=== PATIENT | male | born 1960 | race American Indian/Alaskan Native ===

== ENCOUNTER 2016-08-20 22:10 | Emergency (ER) | payer SELFPAY ==
[2016-08-20 22:15] VITALS: RESP 16
--- NOTE | 2016-08-20 22:32 | ED PDOC ---
HPI: Psych/Substance Abuse Time Seen by Provider: 08/20/16 22:15 Chief Complaint (Nursing): Psychiatric Evaluation Chief Complaint (Provider): "I'm alone" History Per: Patient History/Exam Limitations: no limitations Current Symptoms Are (Timing): Still Present Additional Complaint(s): Pt states "he is alone" when asked why he is in the ER. PT admits to drinking. According to EMS to was laying on the street sleeping and a bystander called police/EMS. EMS states he reports SI in ambulance. Past Medical History Reviewed: Historical Data, Nursing Documentation, Vital Signs Vital Signs: Last Vital Signs Temp 98.2 F 08/20/16 22:14 Pulse 90 08/20/16 22:14 Resp 16 08/20/16 22:14 BP 123/74 08/20/16 22:14 Pulse Ox 98 08/20/16 22:14 - Medical History PMH: Asthma, CVA, HIV, Schizophrenia, Seizures Denies: Diabetes, Hepatitis, HTN, Chronic Kidney Disease, Sexually Transmitted Disease - Surgical History Surgical History: No Surg Hx - Family History Family History: States: Unknown Family Hx - Living Arrangements Living Arrangements: Other - Social History Current smoker - smoking cessation education provided: No - Immunization History Hx Tetanus Toxoid Vaccination: No Hx Influenza Vaccination: No Hx Pneumococcal Vaccination: No - Home Medications Home Medications: Ambulatory Orders Medication Instructions Recorded Unobtainable [Unobtainable] 09/23/14 Gabapentin [Neurontin] 300 mg PO TID #90 cap 05/03/15 Lisinopril [Zestril] 2.5 mg PO DAILY #30 tab 05/03/15 QUEtiapine [SEROquel] 50 mg PO HS #30 tab 05/03/15 No Known Home Med 04/11/16 - Allergies Allergies/Adverse Reactions: Allergies Allergy/AdvReac Type Severity Reaction Status Date / Time gentamicin [Gentamicin] Allergy RASH Verified 04/30/15 16:37 Macrolide Antibiotics Allergy RASH Verified 03/30/16 19:12 vancomycin Allergy RASH Verified 04/30/15 16:37 Chocolate AdvReac DIARRHEA Uncoded 04/28/15 17:08 Review of Systems ROS Statement: Except As Marked, All Systems Reviewed And Found Negative Cardiovascular: Negative for: Chest Pain Respiratory: Negative for: Shortness of Breath Psych: Positive for: Other Physical Exam - Reviewed Nursing Documentation Reviewed: Yes Vital Signs Reviewed: Yes - Physical Exam Appears: Positive for: Well, Non-toxic, No Acute Distress Head Exam: Positive for: ATRAUMATIC, NORMAL INSPECTION, NORMOCEPHALIC Skin: Positive for: Normal Color, Warm, DRY Eye Exam: Positive for: Normal appearance, EOMI, PERRL ENT: Positive for: Normal ENT Inspection Neck: Positive for: Normal, Painless ROM Cardiovascular/Chest: Positive for: Regular Rate, Rhythm Respiratory: Positive for: CNT, Normal Breath Sounds Gastrointestinal/Abdominal: Positive for: Normal Exam, Bowel Sounds, Soft. Negative for: Tenderness Back: Positive for: Normal Inspection Neurologic/Psych: Positive for: Alert (To tactile stimuli ). Negative for: Oriented - Laboratory Results Result Diagrams: 08/20/16 23:05 08/20/16 23:05 - ECG O2 Sat by Pulse Oximetry: 98 Medical Decision Making Medical Decision Making: Endorsed at 0000 pending sobriety and re-evaluation. Disposition - Clinical Impression Clinical Impression: Alcohol abuse - Patient ED Disposition Is Patient to be Admitted: Transfer of Care - Disposition Disposition: Transfer of Care Disposition Time: 23:38 Condition: STABLE
[2016-08-20 23:08] LABS: HEMATOCRIT 41.2 % (35.0-51.0); MEAN CELL VOLUME 92.9 fl (80.0-94.0); MEAN CORPUSCULAR HEMOGLOBIN 30.5 pg (27.0-31.0); MEAN CORPUSCULAR HGB CONC 32.9 g/dL (33.0-37.0); RED CELL DISTRIBUTION WIDTH 16.2 % (11.5-14.5); WHITE BLOOD COUNT 5.5 K/uL (4.8-10.8)
[2016-08-20 23:17] LABS: ALB/GLOB RATIO 0.6 (1.0-2.1); ALCOHOL SERUM 284 mg/dl (0-10); ALKALINE PHOSPHATASE 349 U/L (38-126); ALT/SGPT 59 U/L (21-72); AST/SGOT 137 U/L (17-59); BILIRUBIN,TOTAL 0.6 mg/dl (0.2-1.3); BLOOD UREA NITROGEN 10 mg/dl (9-20); CALCIUM 8.8 mg/dL (8.4-10.2); CARBON DIOXIDE 25 mmol/L (22-30); CHLORIDE 109 mmol/L (98-107); GFR AFRICAN-AMERICAN > 60; GLUCOSE,RANDOM 97 mg/dL (75-110); POTASSIUM 3.7 MMOL/L (3.6-5.0); SODIUM 145 mmol/l (132-148)
--- NOTE | 2016-08-21 02:09 | ED PDOC ---
- Laboratory Results Result Diagrams: 08/20/16 23:05 08/20/16 23:05 - ECG O2 Sat by Pulse Oximetry: 98 - Progress ED Course And Treament: Signed out to me pending sobriety. 0000 Pt. in no distress. Sleeping comfortably. 0208 Sleeping comfortably but is easily arousable to tactile stimuli. 0340 Pt. evaluated by crisis and cleared pt. for discharge. 0600 Steady gait. No slurred speech. Disposition - Clinical Impression Clinical Impression: Alcohol abuse - POA Present On Arrival: None - Disposition Referrals: [facility] [Outside] Disposition: Routine/Home Disposition Time: 06:00 Condition: STABLE Instructions: Alcohol Intoxication (ED)
[2016-08-21 07:01] VITALS: BP 132/63; PULSE 79; TEMP 98; O2SAT 99
== END 2016-08-21 06:30 | disposition home or self-care (01) ==
LOC: H.ER 22:10
DX: F10.10 Alcohol abuse, uncomplicated (principal); F20.9 Schizophrenia, unspecified; Z86.73 Personal history of transient ischemic attack (TIA), and cerebral infarction without residual deficits; J45.909 Unspecified asthma, uncomplicated; B20 Human immunodeficiency virus [HIV] disease
CPT/HCPCS: 80053; 85027; 99283; G0480

== ENCOUNTER 2016-12-04 08:00 | Observation (INO) | payer MEDICAID ==
--- NOTE | 2016-12-04 08:21 | ED PDOC ---
HPI: Psych/Substance Abuse Time Seen by Provider: 12/04/16 08:04 Chief Complaint (Nursing): Alcohol Ingestion Chief Complaint (Provider): Alcohol Ingestion History Per: EMS History/Exam Limitations: intoxication Onset/Duration Of Symptoms: Hrs (prior to arrival ) Additional Complaint(s): Chris Delgado is a 56 year old male with a past medical history of HIV, Asthma, CVA, Schizophrenia, and seizures brought to the ED by EMS after being found on the street with a bottle of scotch next to him. The patient admits to EtOH consumption. He denies any injury. PMD: Non CPH Provider Past Medical History Reviewed: Historical Data, Nursing Documentation, Vital Signs - Medical History PMH: Asthma, CVA, HIV, Schizophrenia, Seizures Denies: Diabetes, Hepatitis, HTN, Chronic Kidney Disease, Sexually Transmitted Disease - Family History Family History: States: Unknown Family Hx - Immunization History Hx Tetanus Toxoid Vaccination: No Hx Influenza Vaccination: No Hx Pneumococcal Vaccination: No - Home Medications Home Medications: Ambulatory Orders Medication Instructions Recorded Folic Acid 1 mg PO DAILY #0 tab 06/02/14 Ipratropium/Albuterol Sulfate 2 felipe IH Q4 PRN #0 felipe 06/02/14 [Combivent] Thiamine [B-1] 100 mg PO DAILY #0 tab 06/02/14 chlordiazePOXIDE [Librium] 25 mg PO Q6 #0 cap 06/02/14 Unobtainable [Unobtainable] 09/23/14 Gabapentin [Neurontin] 300 mg PO TID #90 cap 05/03/15 Lisinopril [Zestril] 2.5 mg PO DAILY #30 tab 05/03/15 QUEtiapine [SEROquel] 50 mg PO HS #30 tab 05/03/15 No Known Home Med 04/11/16 Naproxen [Naprosyn] 500 mg PO Q12H PRN #20 tablet 07/30/16 Amoxicillin/Clavulanate [Augmentin 1 tab PO BID #20 tab 09/04/16 875 MG-125 MG] - Allergies Allergies/Adverse Reactions: Allergies Allergy/AdvReac Type Severity Reaction Status Date / Time gentamicin [Gentamicin] Allergy RASH Verified 04/30/15 16:37 Macrolide Antibiotics Allergy RASH Verified 03/30/16 19:12 vancomycin Allergy RASH Verified 04/30/15 16:37 All Mycins Allergy RASH Uncoded 05/08/15 07:25 Chocolate AdvReac DIARRHEA Uncoded 04/28/15 17:08 Review of Systems Review Of Systems: ROS cannot be obtained secondary to pt's inabilty to answer questions. (etoh intoxication) Physical Exam - Reviewed Nursing Documentation Reviewed: Yes Vital Signs Reviewed: Yes - Physical Exam Appears: Positive for: Well, Non-toxic, No Acute Distress Head Exam: Positive for: ATRAUMATIC, NORMAL INSPECTION, NORMOCEPHALIC Skin: Positive for: Normal Color, Warm, Dry Eye Exam: Positive for: EOMI, Normal appearance, PERRL ENT: Positive for: Normal ENT Inspection Neck: Positive for: Normal, Painless ROM, Supple Cardiovascular/Chest: Positive for: Regular Rate, Rhythm, Chest Non Tender Respiratory: Positive for: Normal Breath Sounds. Negative for: Respiratory Distress Gastrointestinal/Abdominal: Positive for: Normal Exam, Bowel Sounds, Soft. Negative for: Tenderness Back: Positive for: Normal Inspection Extremity: Positive for: Normal ROM. Negative for: Pedal Edema, Deformity Neurologic/Psych: Positive for: Alert, Oriented, Mood/Affect (sleepy/arousable ) . Negative for: Motor/Sensory Deficits - Progress Re-evaluation Time: 12:47 Condition: Improved (Awake responsive no focal neuro deficits) Medical Decision Making Medical Decision Making: Time: 08:04 Impression: Alcohol Ingestion Plan: * Alcohol Serum Stat * Admit to Hospital Routine * Reevaluation Scribe Attestation: Documented by Georgette Manriquez, acting as a scribe for Duarte Mixon MD. Provider Scribe Attestation: All medical record entries made by the Scribe were at my direction and personally dictated by me. I have reviewed the chart and agree that the record accurately reflects my personal performance of the history, physical exam, medical decision making, and the department course for this patient. I have also personally directed, reviewed, and agree with the discharge instructions and disposition. ED OBSERVATION Discharge: Yes Date of observation admission: 12/04/16 Time of observation admission: 08:17 - Observation admission statement Patient is being placed in observation because:: Time intensive ED evaluation. - Goals of Observation Goals of observation are:: Results of ED workup and eventual disposition. - Progress Note Progress Note: 12/04/16 09:43 Pending clinical sobriety. Vitals stable. 12/04/16 11:26 pt stable. Pending clinical sobriety. Vitals stable. Disposition - Clinical Impression Clinical Impression: Alcohol abuse - Patient ED Disposition Is Patient to be Admitted: No - Disposition Disposition: Routine/Home Disposition Time: 12:47 Condition: FAIR
[2016-12-04 08:51] VITALS: BP 117/61; PULSE 56; RESP 16; O2SAT 100
== END 2016-12-04 15:24 | disposition home or self-care (01) ==
LOC: H.ER 08:00 → H.EROBSV 08:17
PROVIDERS: ADMIT Emergency Medicine; ATTEND Emergency Medicine
DX: F10.10 Alcohol abuse, uncomplicated (principal); Z21 Asymptomatic human immunodeficiency virus [HIV] infection status; F20.9 Schizophrenia, unspecified; J45.909 Unspecified asthma, uncomplicated; Z86.73 Personal history of transient ischemic attack (TIA), and cerebral infarction without residual deficits; R56.9 Unspecified convulsions; Z79.899 Other long term (current) drug therapy; F17.200 Nicotine dependence, unspecified, uncomplicated; Y90.8 Blood alcohol level of 240 mg/100 ml or more
CPT/HCPCS: 80320; 82948; 99282; G0378

== ENCOUNTER 2016-12-09 05:21 | Emergency (ER) | payer SELFPAY ==
[2016-12-09 05:30] VITALS: PULSE 87
--- NOTE | 2016-12-09 05:41 | ED PDOC ---
HPI: Psych/Substance Abuse Time Seen by Provider: 12/09/16 05:25 Chief Complaint (Nursing): Alcohol Ingestion Chief Complaint (Provider): Alcohol Ingestion ED Caveat: Intoxicated History Per: Patient History/Exam Limitations: intoxication Onset/Duration Of Symptoms: Days (x 1) Current Symptoms Are (Timing): Still Present Additional Complaint(s): Chris is a 51 y/o male who was brought to the ED by EMS for alcohol intoxication. Patient was found publicly intoxicated in the streets, laying down. Unable to provide history or ROS due to level of intoxication. No signs of trauma. PMD: None Past Medical History Reviewed: Unable To Obtain Vital Signs: Last Vital Signs Temp 98.0 F 12/09/16 05:28 Pulse 87 12/09/16 05:28 Resp 17 12/09/16 05:28 BP 130/82 12/09/16 05:28 Pulse Ox 98 12/09/16 05:28 - Family History Family History: States: No Known Family Hx - Home Medications Home Medications: Ambulatory Orders Medication Instructions Recorded Folic Acid 1 mg PO DAILY #0 tab 06/02/14 Ipratropium/Albuterol Sulfate 2 felipe IH Q4 PRN #0 felipe 06/02/14 [Combivent] Thiamine [B-1] 100 mg PO DAILY #0 tab 06/02/14 chlordiazePOXIDE [Librium] 25 mg PO Q6 #0 cap 06/02/14 Unobtainable [Unobtainable] 09/23/14 Gabapentin [Neurontin] 300 mg PO TID #90 cap 05/03/15 Lisinopril [Zestril] 2.5 mg PO DAILY #30 tab 05/03/15 QUEtiapine [SEROquel] 50 mg PO HS #30 tab 05/03/15 No Known Home Med 04/11/16 Naproxen [Naprosyn] 500 mg PO Q12H PRN #20 tablet 07/30/16 Amoxicillin/Clavulanate [Augmentin 1 tab PO BID #20 tab 09/04/16 875 MG-125 MG] - Allergies Allergies/Adverse Reactions: Allergies Allergy/AdvReac Type Severity Reaction Status Date / Time gentamicin [Gentamicin] Allergy RASH Verified 04/30/15 16:37 Macrolide Antibiotics Allergy RASH Verified 03/30/16 19:12 vancomycin Allergy RASH Verified 04/30/15 16:37 All Mycins Allergy RASH Uncoded 05/08/15 07:25 Chocolate AdvReac DIARRHEA Uncoded 04/28/15 17:08 Review of Systems Review Of Systems: ROS cannot be obtained secondary to pt's inabilty to answer questions. Physical Exam - Reviewed Nursing Documentation Reviewed: Yes Vital Signs Reviewed: Yes - Physical Exam Appears: Positive for: Non-toxic, No Acute Distress Head Exam: Positive for: ATRAUMATIC, NORMAL INSPECTION, NORMOCEPHALIC Skin: Positive for: Normal Color, Warm, Dry Eye Exam: Positive for: EOMI, Normal appearance, PERRL Neck: Positive for: Normal, Painless ROM, Supple Cardiovascular/Chest: Positive for: Regular Rate, Rhythm. Negative for: Murmur Respiratory: Positive for: Normal Breath Sounds. Negative for: Accessory Muscle Use, Respiratory Distress Gastrointestinal/Abdominal: Positive for: Normal Exam, Soft. Negative for: Tenderness Back: Positive for: Normal Inspection Extremity: Positive for: Normal ROM. Negative for: Pedal Edema, Deformity Neurologic/Psych: Positive for: Alert, Oriented (x1, to person), Other (Slurred speech) - Laboratory Results Result Diagrams: 12/09/16 06:00 12/09/16 06:00 - ECG O2 Sat by Pulse Oximetry: 98 (RA) Pulse Ox Interpretation: Normal Medical Decision Making Medical Decision Making: Time: 05:32 Initial Impression: 51 y/o intoxicated male Initial Plan: --Labs --Patient will be admitted to ED-OBS for alcohol intoxication *See ED-OBS for further documentation Scribe Attestation: Documented by Breanne Umanzor, acting as a scribe for Dusty Kuo MD Provider Scribe Attestation: All medical record entries made by the Scribe were at my direction and personally dictated by me. I have reviewed the chart and agree that the record accurately reflects my personal performance of the history, physical exam, medical decision making, and the department course for this patient. I have also personally directed, reviewed, and agree with the discharge instructions and disposition. ED OBSERVATION Date of observation admission: 12/09/16 Time of observation admission: 05:32 - Observation admission statement Patient is being placed in observation because:: Alcohol intoxication - Goals of Observation Goals of observation are:: Clinical sobriety - Progress Note Progress Note: 12/09/16 Time: 05:32 --Patient resting. Vital signs stable. Time: 07:00 --Patient continues to rest. Vital signs stable. --Patient is signed out by me to Dr. Manpreet Manzano MD, pending sobriety. Disposition - Clinical Impression Clinical Impression: Alcohol abuse with intoxication - Patient ED Disposition Is Patient to be Admitted: Transfer of Care - Disposition Referrals: [facility] [Outside] Disposition: Transfer of Care Disposition Time: 05:30 Condition: GOOD Instructions: Alcohol Intoxication (ED)
[2016-12-09 06:14] LABS: BASO # 0.1 K/uL (0.0-0.2); BASO % 1.1 % (0.0-2.0); EOS # 0.1 K/uL (0.0-0.7); EOS % 0.7 % (0.0-4.0); HEMATOCRIT 43.9 % (35.0-51.0); LYMPH # 2.4 K/uL (1.0-4.3); LYMPH % 32.6 % (20.0-40.0); MEAN CELL VOLUME 94.8 fl (80.0-94.0); MEAN CORPUSCULAR HGB CONC 32.7 g/dL (33.0-37.0); MEAN PLATELET VOLUME 8.9 fl (7.2-11.7); MONO # 0.9 K/uL (0.0-0.8); MONO % 11.7 % (0.0-10.0); NEUT # 3.9 K/uL (1.8-7.0); NEUT % 53.9 % (50.0-75.0); NRBC % 0.5 % (0.0-0.0); WHITE BLOOD COUNT 7.3 K/uL (4.8-10.8)
[2016-12-09 06:46] LABS: ALB/GLOB RATIO 0.5 (1.0-2.1); ALCOHOL SERUM 225 mg/dl (0-10); ALKALINE PHOSPHATASE 697 U/L (38-126); ALT/SGPT 62 U/L (21-72); AST/SGOT 168 U/L (17-59); BLOOD UREA NITROGEN 14 mg/dl (9-20); CALCIUM 8.3 mg/dL (8.4-10.2); CARBON DIOXIDE 22 mmol/L (22-30); CHLORIDE 106 mmol/L (98-107); GFR AFRICAN-AMERICAN > 60; GLUCOSE,RANDOM 89 mg/dL (75-110); POTASSIUM 3.7 MMOL/L (3.6-5.0); SODIUM 140 mmol/l (132-148); TOTAL PROTEIN 8.8 G/DL (6.3-8.2)
--- NOTE | 2016-12-09 07:30 | ED PDOC ---
- Laboratory Results Result Diagrams: 12/09/16 06:00 12/09/16 06:00 - ECG O2 Sat by Pulse Oximetry: 98 (RA) Pulse Ox Interpretation: Normal Medical Decision Making Medical Decision Making: Time: 05:32 Admit to hospital Routine: ED Obs for alcohol intoxication Time: 07:00 --Patient endorsed from Dr. Kuo to me. Any further documentation will be included within ED Obs section of the chart Scribe Attestation: Documented by Jessica Love, acting as a scribe for Manpreet Manzano MD. Provider Scribe Attestation: All medical record entries made by the Scribe were at my direction and personally dictated by me. I have reviewed the chart and agree that the record accurately reflects my personal performance of the history, physical exam, medical decision making, and the department course for this patient. I have also personally directed, reviewed, and agree with the discharge instructions and disposition. Disposition Doctor Will See Patient In The: Office Counseled Patient/Family Regarding: Studies Performed, Diagnosis - Clinical Impression Clinical Impression: Alcohol abuse with intoxication - POA Present On Arrival: None - Disposition Referrals: [facility] [Outside] Disposition: Routine/Home Disposition Time: 14:03 Condition: GOOD Instructions: Alcohol Intoxication (ED) ED OBSERVATION Discharge: Yes Date of observation admission: 12/09/16 Time of observation admission: 05:32 - Observation admission statement Patient is being placed in observation because:: ETOH intoxication - Goals of Observation Goals of observation are:: clinical sobriety - Progress Note Progress Note: 12/09/16 07:02 --Patient resting comfortably. 12/09/16 08:32 --Patient resting comfortably. 12/09/16 10:02 --Patient resting comfortably and pending clinical sobriety. 12/09/16 11:32 --Patient resting comfortably and pending clinical sobriety. 12/09/16 13:02 --Patient resting comfortably and pending clinical sobriety. 12/09/16 14:03 Upon provider reevaluation patient is clinically sober, is medically stable, and requires no further treatment in the ED at this time. Patient will be discharged home. Counseling was provided and all questions were answered regarding diagnosis and need for follow up with referred clinic. There is agreement to discharge plan. Return if symptoms persist or worsen. Clinical Impression: Alcohol abuse with intoxication 12/09/16 14:15 Pt is alert and awake. Ambulating with steady gait.
[2016-12-09 13:44] VITALS: BP 139/94; RESP 16; TEMP 98.6
[2016-12-09 14:04] VITALS: O2SAT 98
[2016-12-09 15:18] LABS: RBC URINE 7 /hpf (0-3); URINE BACTERIA RARE (<OCC); URINE BILIRUBIN NEGATIVE (NEGATIVE); URINE BLOOD NEGATIVE (NEGATIVE); URINE COLOR AMBER (YELLOW); URINE GLUCOSE (UA) NEG (Normal); URINE KETONE TRACE mg/dL (NEGATIVE); URINE LEUKOCYTE ESTERASE NEG Leu/uL (Negative); URINE PROTEIN 30 mg/dL (NEGATIVE); WBC URINE 3 /hpf (0-5)
== END 2016-12-09 14:34 | disposition home or self-care (01) ==
LOC: EDBD → H.ER 05:21 → MERGE 05:21 → H.ER 14:34
DX: F10.129 Alcohol abuse with intoxication, unspecified (principal); Y90.7 Blood alcohol level of 200-239 mg/100 ml
CPT/HCPCS: 80053; 81003; 82948; 85025; 99283; G0480

== ENCOUNTER 2016-12-09 16:50 | Observation (INO) | payer MEDICAID ==
--- NOTE | 2016-12-09 17:08 | ED PDOC ---
HPI: Psych/Substance Abuse Chief Complaint (Nursing): Alcohol Ingestion History Per: EMS Onset/Duration Of Symptoms: Unknown Current Symptoms Are (Timing): Still Present Suicide/Self Injury Attempted (Context): None Modifying Factor(s): Alcohol Severity: Moderate Additional Complaint(s): Brought by EMS admits to ETOH ingestion earlier today. Denies injury. Denies SI/ HI Past Medical History Vital Signs: Last Vital Signs Temp 97.8 F 12/09/16 16:55 Pulse 86 12/09/16 16:55 Resp 14 12/09/16 16:55 BP 138/90 12/09/16 16:55 Pulse Ox 92 L 12/09/16 16:55 - Medical History PMH: No Chronic Diseases - Family History Family History: States: Unknown Family Hx - Allergies Allergies/Adverse Reactions: Allergies Allergy/AdvReac Type Severity Reaction Status Date / Time No Known Allergies Allergy Verified 12/09/16 05:30 Review of Systems Review Of Systems: ROS cannot be obtained secondary to pt's inabilty to answer questions. Physical Exam - Reviewed Nursing Documentation Reviewed: Yes Vital Signs Reviewed: Yes - Physical Exam Appears: Positive for: Non-toxic, No Acute Distress Head Exam: Positive for: ATRAUMATIC, NORMAL INSPECTION, NORMOCEPHALIC Skin: Positive for: Normal Color, Warm, DRY Eye Exam: Positive for: EOMI, Normal appearance, PERRL ENT: Positive for: Normal ENT Inspection Neck: Positive for: Normal, Painless ROM Cardiovascular/Chest: Positive for: Regular Rate, Rhythm Respiratory: Positive for: CNT, Normal Breath Sounds Gastrointestinal/Abdominal: Positive for: Normal Exam, Bowel Sounds, Soft Back: Positive for: Normal Inspection Extremity: Positive for: Normal ROM Neurologic/Psych: Negative for: Alert (Sleepy arousable), Motor/Sensory Deficits - ECG O2 Sat by Pulse Oximetry: 92 ED OBSERVATION Date of observation admission: 12/09/16 Time of observation admission: 17:09 - Observation admission statement Patient is being placed in observation because:: ETOH ingestion Disposition - Clinical Impression Clinical Impression: Alcohol ingestion - Patient ED Disposition Is Patient to be Admitted: No - Disposition Disposition: Routine/Home Disposition Time: 18:08 Condition: FAIR
[2016-12-09 18:22] VITALS: BP 136/75; PULSE 85; RESP 16; TEMP 98; O2SAT 98
== END 2016-12-09 18:50 | disposition home or self-care (01) ==
LOC: H.ER 16:50 → MERGE 17:09 → H.EROBSV 17:09
PROVIDERS: ADMIT Emergency Medicine; ATTEND Emergency Medicine
DX: F10.10 Alcohol abuse, uncomplicated (principal); Y90.6 Blood alcohol level of 120-199 mg/100 ml
CPT/HCPCS: 36415; 80320; 99282; G0378

== ENCOUNTER 2017-02-05 03:33 | Emergency (ER) | payer MEDICAID ==
[2017-02-05 03:40] VITALS: BMI 22.1
--- NOTE | 2017-02-05 03:58 | ED PDOC ---
HPI: Psych/Substance Abuse Time Seen by Provider: 02/05/17 03:38 Chief Complaint (Nursing): Alcohol Ingestion Chief Complaint (Provider): Alcohol Intoxication ED Caveat: Intoxicated History Per: Patient History/Exam Limitations: no limitations Current Symptoms Are (Timing): Still Present Suicide/Self Injury Attempted (Context): None Modifying Factor(s): Alcohol Additional Complaint(s): 56 year old male brought in by EMS presents to ED due to public alcohol intoxication and is well known to provider and ED. Patient is unable to provide any information, PCP: GREGOR[facility] Past Medical History Reviewed: Historical Data, Nursing Documentation, Vital Signs - Medical History PMH: Asthma, CVA, HIV, Schizophrenia, Seizures Denies: Diabetes, Hepatitis, HTN, Chronic Kidney Disease, Sexually Transmitted Disease - Family History Family History: States: Unknown Family Hx - Social History Alcohol: > 2 Drinks/Day - Immunization History Hx Tetanus Toxoid Vaccination: No Hx Influenza Vaccination: No Hx Pneumococcal Vaccination: No - Home Medications Home Medications: Ambulatory Orders Medication Instructions Recorded Folic Acid 1 mg PO DAILY #0 tab 06/02/14 Ipratropium/Albuterol Sulfate 2 felipe IH Q4 PRN #0 felipe 06/02/14 [Combivent] Thiamine [B-1] 100 mg PO DAILY #0 tab 06/02/14 chlordiazePOXIDE [Librium] 25 mg PO Q6 #0 cap 06/02/14 Unobtainable [Unobtainable] 09/23/14 Gabapentin [Neurontin] 300 mg PO TID #90 cap 05/03/15 Lisinopril [Zestril] 2.5 mg PO DAILY #30 tab 05/03/15 QUEtiapine [SEROquel] 50 mg PO HS #30 tab 05/03/15 No Known Home Med 04/11/16 Naproxen [Naprosyn] 500 mg PO Q12H PRN #20 tablet 07/30/16 Amoxicillin/Clavulanate [Augmentin 1 tab PO BID #20 tab 09/04/16 875 MG-125 MG] - Allergies Allergies/Adverse Reactions: Allergies Allergy/AdvReac Type Severity Reaction Status Date / Time gentamicin [Gentamicin] Allergy RASH Verified 04/30/15 16:37 Macrolide Antibiotics Allergy RASH Verified 03/30/16 19:12 vancomycin Allergy RASH Verified 04/30/15 16:37 All Mycins Allergy RASH Uncoded 05/08/15 07:25 Chocolate AdvReac DIARRHEA Uncoded 04/28/15 17:08 Review of Systems Review Of Systems: ROS cannot be obtained secondary to pt's inabilty to answer questions. Physical Exam - Reviewed Nursing Documentation Reviewed: Yes Vital Signs Reviewed: Yes - Physical Exam Appears: Positive for: Non-toxic, No Acute Distress Skin: Positive for: Normal Color ENT: Positive for: Normal ENT Inspection Cardiovascular/Chest: Positive for: Regular Rate, Rhythm. Negative for: Murmur Respiratory: Positive for: Normal Breath Sounds. Negative for: Respiratory Distress Gastrointestinal/Abdominal: Positive for: Soft. Negative for: Tenderness Back: Positive for: Normal Inspection Extremity: Positive for: Normal ROM. Negative for: Deformity Neurologic/Psych: Positive for: Gait (unsteady gait), Other ((+) slurred speech) . Negative for: Alert, Oriented Medical Decision Making Medical Decision Makin Initial impression: alcohol intoxication Initial plan: * EtOH serum * UDrug screen * Accucheck Scribe Attestation: Documented by Eliza Burns acting as a scribe for Dusty Kuo MD. Scribe Attestation: All medical record entries made by the Scribe were at my direction and personally dictated by me. I have reviewed the chart and agree that the record accurately reflects my personal performance of the history, physical exam, medical decision making, and the department course for this patient. I have also personally directed, reviewed, and agree with the discharge instructions and disposition. Disposition - Disposition Forms: [employer] (Sinhala)
[2017-02-05 04:23] VITALS: BP 133/99; PULSE 65; RESP 14; TEMP 98.4; O2SAT 99
== END 2017-02-05 07:00 | disposition home or self-care (01) ==
LOC: H.ER 03:33
DX: F10.10 Alcohol abuse, uncomplicated (principal)

== ENCOUNTER 2017-04-26 08:50 | Emergency (ER) | payer MEDICAID ==
[2017-04-26 08:51] VITALS: BMI 22.1
[2017-04-26 09:13] VITALS: TEMP 97.7; O2SAT 98
[2017-04-26] MEDS ORDERED: Albuterol-Ipratrop 3 mg / 0.5 (3 ml) UD INH STA (09:54)
[2017-04-26] MEDS ORDERED: Albuterol-Ipratrop 3 mg / 0.5 (3 ml) UD ONE (09:59)
--- NOTE | 2017-04-26 10:05 | ED PDOC ---
HPI: Psych/Substance Abuse Time Seen by Provider: 04/26/17 09:23 Chief Complaint (Nursing): Alcohol Ingestion Chief Complaint (Provider): Alcohol Ingestion History Per: Patient, EMS History/Exam Limitations: no limitations Onset/Duration Of Symptoms: Days (x 1) Current Symptoms Are (Timing): Still Present Involuntary Hold By: Local Law Enforcement Additional Complaint(s): 57 year old male presents to the ED for evaluation after begin brought in by EMS and placed under arrest by local police. He was found sleeping in the hallway of an apartment building. Admits to drinking alcohol. He complains of coughing. Denies fever. PMD: none provided Past Medical History Reviewed: Historical Data Vital Signs: Last Vital Signs Temp 97.7 F 04/26/17 08:56 Pulse 63 04/26/17 09:33 Resp 16 04/26/17 09:33 BP 137/92 H 04/26/17 09:33 Pulse Ox 98 04/26/17 09:33 - Medical History PMH: Asthma, CVA, HIV, Schizophrenia, Seizures Denies: Diabetes, Hepatitis, HTN, Chronic Kidney Disease, Sexually Transmitted Disease - Surgical History Surgical History: No Surg Hx - Family History Family History: States: Unknown Family Hx - Immunization History Hx Tetanus Toxoid Vaccination: No Hx Influenza Vaccination: No Hx Pneumococcal Vaccination: No - Home Medications Home Medications: Ambulatory Orders Medication Instructions Recorded Folic Acid 1 mg PO DAILY #0 tab 06/02/14 Ipratropium/Albuterol Sulfate 2 felipe IH Q4 PRN #0 felipe 06/02/14 [Combivent] Thiamine [B-1] 100 mg PO DAILY #0 tab 06/02/14 chlordiazePOXIDE [Librium] 25 mg PO Q6 #0 cap 06/02/14 Gabapentin [Neurontin] 300 mg PO TID #90 cap 05/03/15 Lisinopril [Zestril] 2.5 mg PO DAILY #30 tab 05/03/15 QUEtiapine [SEROquel] 50 mg PO HS #30 tab 05/03/15 Naproxen [Naprosyn] 500 mg PO Q12H PRN #20 tablet 07/30/16 Amoxicillin/Clavulanate [Augmentin 1 tab PO BID #20 tab 09/04/16 875 MG-125 MG] levoFLOXacin [Levaquin] 750 mg PO DAILY #4 tab 04/26/17 - Allergies Allergies/Adverse Reactions: Allergies Allergy/AdvReac Type Severity Reaction Status Date / Time gentamicin [Gentamicin] Allergy RASH Verified 04/26/17 08:56 Macrolide Antibiotics Allergy RASH Verified 04/26/17 08:56 vancomycin Allergy RASH Verified 04/26/17 08:56 All Mycins Allergy RASH Uncoded 05/08/15 07:25 Chocolate AdvReac DIARRHEA Uncoded 04/28/15 17:08 Review of Systems ROS Statement: Except As Marked, All Systems Reviewed And Found Negative Constitutional: Negative for: Fever Respiratory: Positive for: Cough Physical Exam - Reviewed Nursing Documentation Reviewed: Yes Vital Signs Reviewed: Yes - Physical Exam Appears: Positive for: Non-toxic, No Acute Distress Head Exam: Positive for: ATRAUMATIC, NORMOCEPHALIC Skin: Positive for: Normal Color, Warm, Dry Eye Exam: Positive for: EOMI, Normal appearance, PERRL Neck: Positive for: Normal, Painless ROM, Supple Cardiovascular/Chest: Positive for: Regular Rate, Rhythm Respiratory: Positive for: Normal Breath Sounds. Negative for: Respiratory Distress Gastrointestinal/Abdominal: Positive for: Normal Exam, Soft Extremity: Positive for: Normal ROM. Negative for: Deformity Neurologic/Psych: Positive for: Alert, Oriented - Laboratory Results Result Diagrams: 04/26/17 12:20 04/26/17 12:20 - ECG O2 Sat by Pulse Oximetry: 98 (RA) Pulse Ox Interpretation: Normal Medical Decision Making Medical Decision Making: Time: 09:53 Plan: --Alcohol serum --Chest x-ray --Duoneb 3 ml INH --Peak Flow Pre-post Time: 10:44 Chest X-ray FINDINGS: LUNGS: No active pulmonary disease. PLEURA: No significant pleural effusion identified, no pneumothorax apparent. CARDIOVASCULAR: Normal. OSSEOUS STRUCTURES: Probable old fracture right 6th and 7th ribs laterally. Correlate with examination. . VISUALIZED UPPER ABDOMEN: Normal. OTHER FINDINGS: None. IMPRESSION: No acute infiltrate. Probable old fractures right 6th and 7th ribs. Otherwise unremarkable. Scribe Attestation: Documented by Annette Aceves, acting as a scribe for Rekha Sheehan MD Provider Scribe Attestation: All medical record entries made by the Scribe were at my direction and personally dictated by me. I have reviewed the chart and agree that the record accurately reflects my personal performance of the history, physical exam, medical decision making, and the department course for this patient. I have also personally directed, reviewed, and agree with the discharge instructions and disposition. Disposition - Clinical Impression Clinical Impression: Alcohol intoxication, Bronchitis - Disposition Referrals: [facility] [Outside] Disposition: Routine/Home Disposition Time: 13:48 Condition: IMPROVED Prescriptions: levoFLOXacin [Levaquin] 750 mg PO DAILY #4 tab Instructions: Acute Bronchitis (ED), Alcohol Intoxication (ED) Forms: [employer] (Sinhala)
--- NOTE | 2017-04-26 10:46 | RAD ---
HISTORY: Cough COMPARISON: 03/31/2016 FINDINGS: LUNGS: No active pulmonary disease. PLEURA: No significant pleural effusion identified, no pneumothorax apparent. CARDIOVASCULAR: Normal. OSSEOUS STRUCTURES: Probable old fracture right 6th and 7th ribs laterally. Correlate with examination. . VISUALIZED UPPER ABDOMEN: Normal. OTHER FINDINGS: None. IMPRESSION: No acute infiltrate. Probable old fractures right 6th and 7th ribs. Otherwise unremarkable.
[2017-04-26] MEDS ORDERED: levoFLOXacin 750 MG TAB PO ONE (11:30)
[2017-04-26] MEDS ORDERED: Sodium Chloride 0.9% 1,000 ML IV STA (11:53)
[2017-04-26] MEDS ORDERED: levoFLOXacin 750 mg in D5W 150 ML BAG IVPB STA (11:53)
[2017-04-26] MEDS ORDERED: levoFLOXacin 750 mg in D5W 750 MG/150 ML BAG IVPB ONE (11:56)
[2017-04-26] MEDS: levoFLOXacin 750 mg in D5W 750 MG/150 ML BAG IVPB ONE ×2 (12:00→12:01)
[2017-04-26 12:25] LABS: BASO # 0.1 K/uL (0.0-0.2); BASO % 1.3 % (0.0-2.0); EOS # 0.1 K/uL (0.0-0.7); HEMOGLOBIN 13.5 g/dL (12.0-18.0); LYMPH # 1.2 K/uL (1.0-4.3); LYMPH % 20.1 % (20.0-40.0); MEAN CELL VOLUME 96.2 fl (80.0-94.0); MEAN CORPUSCULAR HGB CONC 33.2 g/dL (33.0-37.0); MEAN PLATELET VOLUME 9.1 fl (7.2-11.7); MONO # 0.5 K/uL (0.0-0.8); NEUT # 4.1 K/uL (1.8-7.0); NEUT % 67.6 % (50.0-75.0); NRBC % 0.2 % (0.0-0.0); RBC 4.22 Mil/uL (4.40-5.90); RED CELL DISTRIBUTION WIDTH 13.8 % (11.5-14.5); WHITE BLOOD COUNT 6.1 K/uL (4.8-10.8)
[2017-04-26 12:36] LABS: ALBUMIN 2.9 g/dL (3.5-5.0); ALT/SGPT 33 U/L (21-72); AST/SGOT 108 U/L (17-59); BLOOD UREA NITROGEN 23 mg/dl (9-20); CALCIUM 8.5 mg/dL (8.4-10.2); GFR AFRICAN-AMERICAN > 60; GFR NON-AFRICAN AMERICAN > 60
[2017-04-26 12:37] LABS: ALB/GLOB RATIO 0.5 (1.0-2.1)
[2017-04-26] MEDS ORDERED: Multivitamin (MVI) 10 ML, Thiamine 100 MG in Sodium Chloride 0.9% 1,000 ML IV ONE (12:49)
[2017-04-26 14:09] VITALS: BP 131/90; PULSE 85; RESP 18
== END 2017-04-26 14:08 | disposition home or self-care (01) ==
LOC: H.ER 08:50
DX: F10.129 Alcohol abuse with intoxication, unspecified (principal); J40 Bronchitis, not specified as acute or chronic; Z86.59 Personal history of other mental and behavioral disorders; J45.909 Unspecified asthma, uncomplicated; Z86.73 Personal history of transient ischemic attack (TIA), and cerebral infarction without residual deficits; Y90.3 Blood alcohol level of 60-79 mg/100 ml
CPT/HCPCS: 71045; 80053; 80320; 82948; 85025; 94640; 99283; J7040

== ENCOUNTER 2017-06-24 22:54 | Emergency (ER) | payer MEDICAID ==
[2017-06-24 22:54] VITALS: BMI 22.1
[2017-06-24 22:58] VITALS: BP 114/80; PULSE 92; RESP 18; TEMP 97.9; O2SAT 95
[2017-06-25 00:07] LABS: ALB/GLOB RATIO 0.5 (1.0-2.1); ALBUMIN 2.9 g/dL (3.5-5.0); CALCIUM 7.8 mg/dL (8.4-10.2); GFR AFRICAN-AMERICAN > 60; GFR NON-AFRICAN AMERICAN > 60
[2017-06-25 00:08] LABS: ALT/SGPT 25 U/L (21-72); AST/SGOT 77 U/L (17-59); BLOOD UREA NITROGEN 14 mg/dl (9-20)
--- NOTE | 2017-06-25 00:23 | CT ---
EXAM: CT Head Without Intravenous Contrast CLINICAL HISTORY: 57 years old, male; Injury or trauma; Fall; Initial encounter; Blunt trauma (contusions or hematomas); Additional info: Had injury, fall TECHNIQUE: Axial computed tomography images of the head/brain without intravenous contrast. All CT scans at this facility use one or more dose reduction techniques, viz.: automated exposure control; ma/kV adjustment per patient size (including targeted exams where dose is matched to indication; i.e. head); or iterative reconstruction technique. Coronal and sagittal reformatted images were created and reviewed. COMPARISON: CT - HEAD W/O CONTRAST 2016-09-23 23:58 FINDINGS: Brain: There is mild diffuse cerebral atrophy present, consistent with this patient's age. No hemorrhage. No significant white matter disease. Ventricles: The ventricular system demonstrates mild diffuse compensatory enlargement. Bones/joints: Unremarkable. No acute fracture. Soft tissues: Mild right periorbital soft tissue swelling. Sinuses: There is diffuse mucoperiosteal thickening in the ethmoid, maxillary and sphenoid sinuses, consistent with chronic sinusitis. Mastoid air cells: Unremarkable as visualized. No mastoid effusion. IMPRESSION: No acute intracranial findings. Chronic sinus disease.
[2017-06-25 00:26] LABS: HEMOGLOBIN 12.5 g/dL (12.0-18.0); MEAN CELL VOLUME 95.5 fl (80.0-94.0); MEAN CORPUSCULAR HGB CONC 33.5 g/dL (33.0-37.0); RBC 3.92 Mil/uL (4.40-5.90); RED CELL DISTRIBUTION WIDTH 14.7 % (11.5-14.5); WHITE BLOOD COUNT 5.4 K/uL (4.8-10.8)
--- NOTE | 2017-06-25 01:24 | ED PDOC ---
HPI: Head Injury Time Seen by Provider: 06/24/17 23:00 Chief Complaint (Nursing): Trauma Chief Complaint (Provider): Alcohol, head injury History Per: Patient, EMS History/Exam Limitations: no limitations Injury Occurred (Timing): Just Before Arrival Onset/Duration Of Symptoms: Mins Patient States: Fell Striking Head Severity: None Additional Complaint(s): 57 yo male with chronic alcohol abuse presents with head injury after witness fall. Pt denies other complaint.s Past Medical History Reviewed: Historical Data, Nursing Documentation, Vital Signs Vital Signs: Last Vital Signs Temp 97.9 F 06/24/17 22:55 Pulse 92 H 06/24/17 22:55 Resp 18 06/24/17 22:55 BP 114/80 06/24/17 22:55 Pulse Ox 95 06/24/17 22:55 - Medical History PMH: Asthma, CVA, HIV, Schizophrenia, Seizures Denies: Diabetes, Hepatitis, HTN, Chronic Kidney Disease, Sexually Transmitted Disease - Surgical History Surgical History: No Surg Hx - Family History Family History: States: Unknown Family Hx - Living Arrangements Living Arrangements: With Family - Social History Current smoker - smoking cessation education provided: No - Immunization History Hx Tetanus Toxoid Vaccination: No Hx Influenza Vaccination: No Hx Pneumococcal Vaccination: No - Home Medications Home Medications: Ambulatory Orders Medication Instructions Recorded Folic Acid 1 mg PO DAILY #0 tab 06/02/14 Ipratropium/Albuterol Sulfate 2 felipe IH Q4 PRN #0 felipe 06/02/14 [Combivent] Thiamine [B-1] 100 mg PO DAILY #0 tab 06/02/14 chlordiazePOXIDE [Librium] 25 mg PO Q6 #0 cap 06/02/14 Gabapentin [Neurontin] 300 mg PO TID #90 cap 05/03/15 Lisinopril [Zestril] 2.5 mg PO DAILY #30 tab 05/03/15 QUEtiapine [SEROquel] 50 mg PO HS #30 tab 05/03/15 Naproxen [Naprosyn] 500 mg PO Q12H PRN #20 tablet 07/30/16 Amoxicillin/Clavulanate [Augmentin 1 tab PO BID #20 tab 09/04/16 875 MG-125 MG] levoFLOXacin [Levaquin] 750 mg PO DAILY #4 tab 04/26/17 - Allergies Allergies/Adverse Reactions: Allergies Allergy/AdvReac Type Severity Reaction Status Date / Time gentamicin [Gentamicin] Allergy RASH Verified 04/26/17 08:56 Macrolide Antibiotics Allergy RASH Verified 04/26/17 08:56 vancomycin Allergy RASH Verified 04/26/17 08:56 All Mycins Allergy RASH Uncoded 05/08/15 07:25 Chocolate AdvReac DIARRHEA Uncoded 04/28/15 17:08 Review of Systems ROS Statement: Except As Marked, All Systems Reviewed And Found Negative Constitutional: Negative for: Fever, Chills Respiratory: Negative for: Cough, Shortness of Breath Gastrointestinal: Negative for: Nausea, Vomiting, Abdominal Pain Skin: Positive for: Other Physical Exam - Reviewed Nursing Documentation Reviewed: Yes Vital Signs Reviewed: Yes - Physical Exam Appears: Positive for: Well, Non-toxic, No Acute Distress Head Exam: Positive for: ATRAUMATIC, NORMAL INSPECTION, NORMOCEPHALIC Skin: Positive for: Warm. Negative for: Normal Color ((+) hematoma, right eyebrow ) Eye Exam: Positive for: Normal appearance ENT: Positive for: Normal ENT Inspection Neck: Positive for: Normal, Painless ROM Cardiovascular/Chest: Positive for: Regular Rate, Rhythm Respiratory: Positive for: CNT, Normal Breath Sounds Gastrointestinal/Abdominal: Positive for: Normal Exam, Bowel Sounds. Negative for: Tenderness Back: Positive for: Normal Inspection Extremity: Positive for: Normal ROM Neurologic/Psych: Positive for: Alert, Oriented - Laboratory Results Result Diagrams: 06/24/17 23:45 06/24/17 23:45 - ECG O2 Sat by Pulse Oximetry: 95 Medical Decision Making Medical Decision Making: Head CT without acute abnormalities. 0200 - Alcohol < 150 Disposition - Clinical Impression Clinical Impression: Head injury due to trauma, Alcohol abuse - Patient ED Disposition Is Patient to be Admitted: No - Disposition Disposition: Routine/Home Disposition Time: 01:25 Condition: GOOD Instructions: Alcohol Abuse and Alcoholism (DC) Forms: [employer] (Tamazight)
== END 2017-06-25 04:58 | disposition home or self-care (01) ==
LOC: H.ER 22:54
DX: S09.90XA Unspecified injury of head, initial encounter (principal); F10.10 Alcohol abuse, uncomplicated; J45.909 Unspecified asthma, uncomplicated; Z86.59 Personal history of other mental and behavioral disorders; Z86.73 Personal history of transient ischemic attack (TIA), and cerebral infarction without residual deficits; W18.30XA Fall on same level, unspecified, initial encounter

== ENCOUNTER 2017-07-07 04:27 | Emergency (ER) | payer MEDICAID ==
[2017-07-07 04:27] VITALS: BMI 22.1
--- NOTE | 2017-07-07 05:31 | ED PDOC ---
HPI: Male Pain Time Seen by Provider: 07/07/17 04:47 Chief Complaint (Nursing): Groin Pain Chief Complaint (Provider): Intoxication, Groin pain History Per: Patient, EMS History/Exam Limitations: intoxication Onset/Duration Of Symptoms: Days (x2) Current Symptoms Are (Timing): Still Present Associated Symptoms: denies: Nausea, Vomiting, Diarrhea, Constipation, Urinary Symptoms Additional Complaint(s): Chris Delgado is a 57 year old male with a past medical history of asthma, CVA, and seizures, who was brought to the ER by EMS for evaluation of alcohol intoxication, prior to arrival. Patient reports sleeping outside and getting picked up by ambulance. He denies any trauma, but complains of groin pain worsened when walking, onset 2 days ago. Patient denies any dysuria, nausea, vomiting diarrhea, or difficulty during bowel movements. History may be unreliable secondary to patient's alcohol intoxication. Also reporting depression. PMD: none provided Past Medical History Reviewed: Historical Data, Nursing Documentation, Vital Signs Vital Signs: Last Vital Signs Temp 97.8 F 07/07/17 04:33 Pulse 87 07/07/17 04:33 Resp 18 07/07/17 04:33 BP 143/94 H 07/07/17 04:33 Pulse Ox 98 07/07/17 04:33 - Medical History PMH: Asthma, CVA, HIV, Schizophrenia, Seizures Denies: Diabetes, Hepatitis, HTN, Chronic Kidney Disease, Sexually Transmitted Disease - Surgical History Surgical History: No Surg Hx - Family History Family History: States: Unknown Family Hx - Social History Alcohol: Other (currently intoxicated) - Immunization History Hx Tetanus Toxoid Vaccination: No Hx Influenza Vaccination: No Hx Pneumococcal Vaccination: No - Home Medications Home Medications: Ambulatory Orders Medication Instructions Recorded Folic Acid 1 mg PO DAILY #0 tab 06/02/14 Ipratropium/Albuterol Sulfate 2 felipe IH Q4 PRN #0 felipe 06/02/14 [Combivent] Thiamine [B-1] 100 mg PO DAILY #0 tab 06/02/14 chlordiazePOXIDE [Librium] 25 mg PO Q6 #0 cap 06/02/14 Gabapentin [Neurontin] 300 mg PO TID #90 cap 05/03/15 Lisinopril [Zestril] 2.5 mg PO DAILY #30 tab 05/03/15 QUEtiapine [SEROquel] 50 mg PO HS #30 tab 05/03/15 Naproxen [Naprosyn] 500 mg PO Q12H PRN #20 tablet 07/30/16 Amoxicillin/Clavulanate [Augmentin 1 tab PO BID #20 tab 09/04/16 875 MG-125 MG] levoFLOXacin [Levaquin] 750 mg PO DAILY #4 tab 04/26/17 Levofloxacin [Levaquin] 750 mg PO DAILY #6 tablet 07/07/17 - Allergies Allergies/Adverse Reactions: Allergies Allergy/AdvReac Type Severity Reaction Status Date / Time gentamicin [Gentamicin] Allergy RASH Verified 04/26/17 08:56 Macrolide Antibiotics Allergy RASH Verified 04/26/17 08:56 vancomycin Allergy RASH Verified 04/26/17 08:56 All Mycins Allergy RASH Uncoded 05/08/15 07:25 Chocolate AdvReac DIARRHEA Uncoded 04/28/15 17:08 Review of Systems ROS Statement: Except As Marked, All Systems Reviewed And Found Negative Gastrointestinal: Negative for: Nausea, Vomiting, Diarrhea Genitourinary Male: Positive for: Other (groin pain). Negative for: Dysuria Physical Exam - Reviewed Nursing Documentation Reviewed: Yes Vital Signs Reviewed: Yes - Physical Exam Appears: Positive for: No Acute Distress. Negative for: Well ((+) disheveled, ( +) lethargic, (+) arousable to voice and able to answer questions and follow commands) Head Exam: Positive for: NORMOCEPHALIC Skin: Positive for: Warm, Dry Eye Exam: Positive for: Other (faint ecchymosis to left perorbital area, old sutured laceration to left brow - 3 interrupted clean, dry sutures) ENT: Positive for: Pharynx Is (clear) Neck: Positive for: Painless ROM. Negative for: Trachea Midline Cardiovascular/Chest: Positive for: Regular Rate, Rhythm. Negative for: Murmur Respiratory: Positive for: Normal Breath Sounds. Negative for: Respiratory Distress Gastrointestinal/Abdominal: Positive for: Tenderness (suprapublic), Distended ( mild, suprapubic region). Negative for: Mass, Guarding, Rebound Back: Positive for: Normal Inspection. Negative for: Decreased ROM Extremity: Positive for: Normal ROM (full range of motion of lower extremity). Negative for: Deformity Lymphatic: Negative for: Adenopathy Neurologic/Psych: Positive for: Other (slurred speech). Negative for: Motor/ Sensory Deficits - Laboratory Results Result Diagrams: 07/07/17 05:55 07/07/17 05:55 - ECG O2 Sat by Pulse Oximetry: 98 (RA) Pulse Ox Interpretation: Normal Medical Decision Making Medical Decision Making: Time: 5:05 Impression: Intoxication, Pelvic Pain, Depression Plan: --CT ABD/Pelvis --Alcohol Serum --CMP --CBC Sutures removed without difficulty. CT demonstrates RLL pneumonia suspicious for aspiration pna. On questioning, pt denies cough/fever/sob. CXR unremarkable BAL 11. Normal WBC. No emergently significant lab abnormalities Scribe Attestation: Documented by Shila Ortiz acting as a scribe for Corrine Gregory MD. Scribe Attestation: All medical record entries made by the Scribe were at my direction and personally dictated by me. I have reviewed the chart and agree that the record accurately reflects my personal performance of the history, physical exam, medical decision making, and the department course for this patient. I have also personally directed, reviewed, and agree with the discharge instructions and disposition. Disposition - Clinical Impression Clinical Impression: Pneumonia, Depression - Disposition Disposition Time: 07:00 Condition: STABLE Prescriptions: Levofloxacin [Levaquin] 750 mg PO DAILY #6 tablet Patient Signed Over To: Wil Barajas III Handoff Comments: Pending crisis eval, reassess, final ER disposition
[2017-07-07 06:00] LABS: BASO # 0.1 K/uL (0.0-0.2); BASO % 1.2 % (0.0-2.0); EOS # 0.1 K/uL (0.0-0.7); EOS % 2.1 % (0.0-4.0); HEMOGLOBIN 12.6 g/dL (12.0-18.0); LYMPH # 1.2 K/uL (1.0-4.3); LYMPH % 20.6 % (20.0-40.0); MEAN CELL VOLUME 96.7 fl (80.0-94.0); MEAN CORPUSCULAR HEMOGLOBIN 31.8 pg (27.0-31.0); MEAN CORPUSCULAR HGB CONC 32.8 g/dL (33.0-37.0); MEAN PLATELET VOLUME 8.7 fl (7.2-11.7); MONO # 0.4 K/uL (0.0-0.8); MONO % 6.4 % (0.0-10.0); NEUT # 4.2 K/uL (1.8-7.0); NEUT % 69.7 % (50.0-75.0); NRBC % 0.2 % (0.0-0.0); RBC 3.97 Mil/uL (4.40-5.90); RED CELL DISTRIBUTION WIDTH 15.3 % (11.5-14.5)
[2017-07-07 06:11] LABS: ALB/GLOB RATIO 0.5 (1.0-2.1); ALBUMIN 2.9 g/dL (3.5-5.0); ALT/SGPT 30 U/L (21-72); AST/SGOT 108 U/L (17-59); BLOOD UREA NITROGEN 13 mg/dl (9-20); CALCIUM 8.5 mg/dL (8.4-10.2); GFR AFRICAN-AMERICAN > 60; GFR NON-AFRICAN AMERICAN > 60
[2017-07-07] MEDS ORDERED: levoFLOXacin 750 mg in D5W 150 ML BAG IVPB STA (06:31)
[2017-07-07] MEDS ORDERED: levoFLOXacin 750 mg in D5W 750 MG/150 ML BAG IVPB ONE (06:40)
--- NOTE | 2017-07-07 09:15 | ED PDOC ---
- Laboratory Results Result Diagrams: 07/07/17 05:55 07/07/17 05:55 - ECG O2 Sat by Pulse Oximetry: 96 Medical Decision Making Medical Decision Making: recd 7am on endorsement pending crisis eval. Started on levaquin for possible pneumonia seen on CT. Patient without respiratory complaints in ED, normal SPO2 and normal HR. 850a crisis per Dr Gibson cleared for discharge. Patient given breakfast tolerated without difficulty. DC w PO levaquin, followup PMD/clinic 2-3 days. Disposition Counseled Patient/Family Regarding: Studies Performed, Diagnosis, Need For Followup - Clinical Impression Clinical Impression: Depression, Pneumonia - POA Present On Arrival: None - Disposition Disposition: Routine/Home Disposition Time: 09:00 Condition: STABLE Additional Instructions: See clinic for followup in 2-3 days. Return to ER for any difficulty breathing, weakness or any concern. Prescriptions: Levofloxacin [Levaquin] 750 mg PO DAILY #6 tablet Instructions: Pneumonia in Adults, Depression, Adult (DC) Forms: [employer] (Frisian)
[2017-07-07 09:33] LABS: PHENCYCLIDINE, UR NEGATIVE (NEGATIVE)
[2017-07-07 09:41] LABS: BARBITURATES, UR NEGATIVE (NEGATIVE); BENZODIAZEPINES, UR POSITIVE (NEGATIVE); OPIATES, UR POSITIVE (NEGATIVE)
[2017-07-07 10:06] VITALS: BP 123/86; PULSE 67; RESP 18; TEMP 98.8
--- NOTE | 2017-07-07 10:52 | CT ---
PROCEDURE: CT Abdomen and Pelvis without intravenous contrast HISTORY: pelvic pain intoxicated unknown trauma COMPARISON: None. TECHNIQUE: Contiguous images were obtained from the domes of the diaphragms to the upper thighs without the administration of intravenous contrast. Oral contrast was not administered. Radiation dose: Total exam DLP = 636.6 mGy-cm. This CT exam was performed using one or more of the following dose reduction techniques: Automated exposure control, adjustment of the mA and/or kV according to patient size, and/or use of iterative reconstruction technique. FINDINGS: LOWER THORAX: Patchy right lower lobe infiltrates. Cardiomegaly. LIVER: Unremarkable. No gross lesion or ductal dilatation. GALLBLADDER AND BILE DUCTS: Unremarkable. PANCREAS: Unremarkable. No gross lesion or ductal dilatation. SPLEEN: Unremarkable. ADRENALS: Unremarkable. No mass. KIDNEYS AND URETERS: Unremarkable. No hydronephrosis. No solid mass. VASCULATURE: Calcific atherosclerosis. No aortic aneurysm. BOWEL: Prominent amount of retained colonic stool as well as fecalization of distal small bowel contents. No obstruction. No gross mural thickening. APPENDIX: Unremarkable. Normal appendix. PERITONEUM: Unremarkable. No free fluid. No free air. LYMPH NODES: Prominent bilateral inguinal lymph nodes. BLADDER: Unremarkable. REPRODUCTIVE: Unremarkable. BONES: No acute fracture. OTHER FINDINGS: None. IMPRESSION: Right lower lobe patchy infiltrates. Prominent amount of retained colonic stool as well as fecalization of distal small bowel contents may represent slow transit. Nonspecific prominence of bilateral groin lymph nodes.
--- NOTE | 2017-07-07 10:57 | RAD ---
HISTORY: possible pneumonia COMPARISON: Chest radiograph dated 04/26/2017 FINDINGS: LUNGS: No active pulmonary disease. PLEURA: No significant pleural effusion identified, no pneumothorax apparent. CARDIOVASCULAR: Cardiomediastinal silhouette stably enlarged. OSSEOUS STRUCTURES: Unchanged. VISUALIZED UPPER ABDOMEN: Normal. OTHER FINDINGS: None. IMPRESSION: No active disease.
[2017-07-07 21:44] VITALS: O2SAT 98
== END 2017-07-07 10:05 | disposition home or self-care (01) ==
LOC: H.ER 04:27
DX: F32.9 Major depressive disorder, single episode, unspecified (principal); Z86.59 Personal history of other mental and behavioral disorders; Z86.73 Personal history of transient ischemic attack (TIA), and cerebral infarction without residual deficits; J45.909 Unspecified asthma, uncomplicated

== ENCOUNTER 2017-07-15 04:21 | Emergency (ER) | payer MEDICAID ==
[2017-07-15 04:30] VITALS: BMI 24.3
[2017-07-15 04:36] VITALS: BP 142/89; PULSE 76; RESP 18; TEMP 99; O2SAT 98
--- NOTE | 2017-07-15 04:39 | ED PDOC ---
HPI: Psych/Substance Abuse Time Seen by Provider: 07/15/17 04:28 Chief Complaint (Nursing): Alcohol Ingestion Chief Complaint (Provider): Alcohol Intoxication ED Caveat: Intoxicated History Per: Patient History/Exam Limitations: intoxication Onset/Duration Of Symptoms: Unknown Current Symptoms Are (Timing): Still Present Additional History Per: EMS Additional Complaint(s): 56 year old male brought in by EMS presents to ED due to public alcohol intoxication and is well known to provider and ED. Patient is unable to provide any information. EMS reports that he was found sleeping in a vestibule of a building. PMD: None Past Medical History Reviewed: Historical Data, Nursing Documentation, Vital Signs Vital Signs: Last Vital Signs Temp 99.0 F 07/15/17 04:30 Pulse 76 07/15/17 04:30 Resp 18 07/15/17 04:30 BP 142/89 07/15/17 04:30 Pulse Ox 98 07/15/17 04:30 - Medical History PMH: Asthma, CVA, HIV, Schizophrenia, Seizures Denies: Diabetes, Hepatitis, HTN, Chronic Kidney Disease, Sexually Transmitted Disease - Family History Family History: States: Unknown Family Hx - Social History Alcohol: > 2 Drinks/Day - Immunization History Hx Tetanus Toxoid Vaccination: No Hx Influenza Vaccination: No Hx Pneumococcal Vaccination: No - Home Medications Home Medications: Ambulatory Orders Medication Instructions Recorded Folic Acid 1 mg PO DAILY #0 tab 06/02/14 Ipratropium/Albuterol Sulfate 2 felipe IH Q4 PRN #0 felipe 06/02/14 [Combivent] Thiamine [B-1] 100 mg PO DAILY #0 tab 06/02/14 chlordiazePOXIDE [Librium] 25 mg PO Q6 #0 cap 06/02/14 Gabapentin [Neurontin] 300 mg PO TID #90 cap 05/03/15 Lisinopril [Zestril] 2.5 mg PO DAILY #30 tab 05/03/15 QUEtiapine [SEROquel] 50 mg PO HS #30 tab 05/03/15 Naproxen [Naprosyn] 500 mg PO Q12H PRN #20 tablet 07/30/16 Amoxicillin/Clavulanate [Augmentin 1 tab PO BID #20 tab 09/04/16 875 MG-125 MG] levoFLOXacin [Levaquin] 750 mg PO DAILY #4 tab 04/26/17 Levofloxacin [Levaquin] 750 mg PO DAILY #6 tablet 07/07/17 - Allergies Allergies/Adverse Reactions: Allergies Allergy/AdvReac Type Severity Reaction Status Date / Time gentamicin [Gentamicin] Allergy RASH Verified 07/15/17 04:30 Macrolide Antibiotics Allergy RASH Verified 07/15/17 04:30 vancomycin Allergy RASH Verified 07/15/17 04:30 All Mycins Allergy RASH Uncoded 07/15/17 04:30 Chocolate AdvReac DIARRHEA Uncoded 07/15/17 04:30 Review of Systems Review Of Systems: ROS cannot be obtained secondary to pt's inabilty to answer questions. Physical Exam - Reviewed Nursing Documentation Reviewed: Yes Vital Signs Reviewed: Yes - Physical Exam Cardiovascular/Chest: Positive for: Regular Rate, Rhythm Respiratory: Positive for: Normal Breath Sounds Neurologic/Psych: Positive for: Gait (unsteady), Other (slurred speech) - ECG O2 Sat by Pulse Oximetry: 98 (RA) Pulse Ox Interpretation: Normal Medical Decision Making Medical Decision Making: Time: 4:38 Initial Impression: 57 y/o intoxicated male Initial Plan: --Alcohol Serum --Accucheck Time: 5:20 --Glucose check Time: 5:53 --Crisis eval Time: 6:25 --Patient is clinically sober and cleared by crisis. He is stable for discharge home. Clinical Impression: Alcohol induced mood disorder, substance abuse Clinical Condition: Stable Scribe Attestation: Documented by Aidan Bennett, acting as a scribe for Dusty Kuo MD Provider Scribe Attestation: All medical record entries made by the Scribe were at my direction and personally dictated by me. I have reviewed the chart and agree that the record accurately reflects my personal performance of the history, physical exam, medical decision making, and the department course for this patient. I have also personally directed, reviewed, and agree with the discharge instructions and disposition. Disposition - Clinical Impression Clinical Impression: Alcohol-induced mood disorder - Patient ED Disposition Is Patient to be Admitted: No Counseled Patient/Family Regarding: Studies Performed, Diagnosis, Need For Followup - Disposition Disposition Time: 06:25 Condition: STABLE Instructions: Alcohol Abuse and Alcoholism (DC) Forms: [employer] (Kinyarwanda)
== END 2017-07-15 06:41 | disposition home or self-care (01) ==
LOC: H.ER 04:21
DX: F10.94 Alcohol use, unspecified with alcohol-induced mood disorder (principal); Y90.5 Blood alcohol level of 100-119 mg/100 ml

== ENCOUNTER 2017-07-21 00:17 | Emergency (ER) | payer MEDICAID ==
[2017-07-21 00:17] VITALS: BMI 24.3
[2017-07-21 00:32] VITALS: RESP 18
[2017-07-21 01:04] LABS: BASO % 1.1 % (0.0-2.0); EOS # 0.2 K/uL (0.0-0.7); EOS % 4.6 % (0.0-4.0); HEMOGLOBIN 12.8 g/dL (12.0-18.0); LYMPH # 1.3 K/uL (1.0-4.3); LYMPH % 34.1 % (20.0-40.0); MEAN CELL VOLUME 96.9 fl (80.0-94.0); MEAN CORPUSCULAR HEMOGLOBIN 31.6 pg (27.0-31.0); MEAN CORPUSCULAR HGB CONC 32.6 g/dL (33.0-37.0); MONO # 0.4 K/uL (0.0-0.8); MONO % 9.9 % (0.0-10.0); NEUT % 50.3 % (50.0-75.0); NRBC % 0.4 % (0.0-0.0); RBC 4.06 Mil/uL (4.40-5.90); RED CELL DISTRIBUTION WIDTH 14.9 % (11.5-14.5); WHITE BLOOD COUNT 3.9 K/uL (4.8-10.8)
[2017-07-21 01:15] LABS: ALB/GLOB RATIO 0.5 (1.0-2.1); ALBUMIN 2.6 g/dL (3.5-5.0); ALT/SGPT 26 U/L (21-72); AST/SGOT 76 U/L (17-59); BLOOD UREA NITROGEN 16 mg/dl (9-20); GFR AFRICAN-AMERICAN > 60; GFR NON-AFRICAN AMERICAN > 60
[2017-07-21 03:05] VITALS: BP 125/85; PULSE 89; TEMP 97.9; O2SAT 95
--- NOTE | 2017-07-21 03:16 | ED PDOC ---
HPI: Psych/Substance Abuse Time Seen by Provider: 07/21/17 00:21 Chief Complaint (Nursing): Psychiatric Evaluation Chief Complaint (Provider): Psychiatric Evaluation History Per: Patient History/Exam Limitations: no limitations Additional Complaint(s): 57 year old derelict male well known to provider in ED for multiple visits presents complaining of suicidal ideation. Patient denies any suicidal plan. Past Medical History Reviewed: Historical Data, Nursing Documentation, Vital Signs Vital Signs: Last Vital Signs Temp 97.9 F 07/21/17 03:04 Pulse 89 07/21/17 03:04 Resp 18 07/21/17 03:04 BP 125/85 07/21/17 03:04 Pulse Ox 95 07/21/17 03:04 - Medical History PMH: Asthma, CVA, HIV, Schizophrenia, Seizures Denies: Diabetes, Hepatitis, HTN, Chronic Kidney Disease, Sexually Transmitted Disease Other PMH: Bipolar disease - Surgical History Surgical History: No Surg Hx - Family History Family History: States: Unknown Family Hx - Social History Current smoker - smoking cessation education provided: Yes Alcohol: Social Drugs: Other - Immunization History Hx Tetanus Toxoid Vaccination: No Hx Influenza Vaccination: No Hx Pneumococcal Vaccination: No - Home Medications Home Medications: Ambulatory Orders Medication Instructions Recorded Folic Acid 1 mg PO DAILY #0 tab 06/02/14 Ipratropium/Albuterol Sulfate 2 felipe IH Q4 PRN #0 felipe 06/02/14 [Combivent] Thiamine [B-1] 100 mg PO DAILY #0 tab 06/02/14 chlordiazePOXIDE [Librium] 25 mg PO Q6 #0 cap 06/02/14 Gabapentin [Neurontin] 300 mg PO TID #90 cap 05/03/15 Lisinopril [Zestril] 2.5 mg PO DAILY #30 tab 05/03/15 QUEtiapine [SEROquel] 50 mg PO HS #30 tab 05/03/15 Naproxen [Naprosyn] 500 mg PO Q12H PRN #20 tablet 07/30/16 Amoxicillin/Clavulanate [Augmentin 1 tab PO BID #20 tab 09/04/16 875 MG-125 MG] levoFLOXacin [Levaquin] 750 mg PO DAILY #4 tab 04/26/17 Levofloxacin [Levaquin] 750 mg PO DAILY #6 tablet 07/07/17 - Allergies Allergies/Adverse Reactions: Allergies Allergy/AdvReac Type Severity Reaction Status Date / Time gentamicin [Gentamicin] Allergy RASH Verified 07/15/17 04:30 Macrolide Antibiotics Allergy RASH Verified 07/15/17 04:30 vancomycin Allergy RASH Verified 07/15/17 04:30 All Mycins Allergy RASH Uncoded 07/15/17 04:30 Chocolate AdvReac DIARRHEA Uncoded 07/15/17 04:30 Review of Systems ROS Statement: Except As Marked, All Systems Reviewed And Found Negative Psych: Positive for: Suicidal ideation Physical Exam - Reviewed Nursing Documentation Reviewed: Yes Vital Signs Reviewed: Yes - Physical Exam Appears: Positive for: Non-toxic, No Acute Distress Head Exam: Positive for: ATRAUMATIC, NORMOCEPHALIC Skin: Positive for: Normal Color, Warm, Dry Eye Exam: Positive for: Normal appearance, EOMI, PERRL ENT: Positive for: Normal ENT Inspection Neck: Positive for: Normal Cardiovascular/Chest: Positive for: Regular Rate, Rhythm. Negative for: Murmur Respiratory: Positive for: Normal Breath Sounds. Negative for: Respiratory Distress Gastrointestinal/Abdominal: Positive for: Normal Exam, Soft. Negative for: Tenderness Back: Positive for: Normal Inspection. Negative for: L CVA Tenderness, R CVA Tenderness Extremity: Positive for: Normal ROM Neurologic/Psych: Positive for: Alert, Oriented - Laboratory Results Result Diagrams: 07/21/17 00:50 07/21/17 00:50 - ECG O2 Sat by Pulse Oximetry: 95 (RA) Pulse Ox Interpretation: Normal Medical Decision Making Medical Decision Making: Initial Impression: 57 year old male with suicidal ideation and poor state of hygiene. Initial Plan: --Alcohol Serum --CMP --Drug Screen, Urine --Crisis evaluation --Urine dipstick --CBC --Glucose, POC Time:219 Evaluation by crisis, patient is stable for discharge. Diagnosis: alcoholism. Scribe Attestation: Documented by Lilli Cruz, acting as a scribe for Dusty Kuo MD. Provider Scribe Attestation: All medical record entries made by the Scribe were at my direction and personally dictated by me. I have reviewed the chart and agree that the record accurately reflects my personal performance of the history, physical exam, medical decision making, and the department course for this patient. I have also personally directed, reviewed, and agree with the discharge instructions and disposition. Disposition - Clinical Impression Clinical Impression: Alcohol-induced mood disorder - Disposition Disposition Time: 02:20 Condition: STABLE Instructions: Alcohol Abuse and Alcoholism (DC) Forms: [email or web address] (Kiswahili)
== END 2017-07-21 04:00 | disposition home or self-care (01) ==
LOC: H.ER 00:17
DX: F10.14 Alcohol abuse with alcohol-induced mood disorder (principal); F20.9 Schizophrenia, unspecified; F31.9 Bipolar disorder, unspecified; Z86.73 Personal history of transient ischemic attack (TIA), and cerebral infarction without residual deficits

== ENCOUNTER 2017-08-04 01:52 | Emergency (ER) | payer MEDICAID ==
[2017-08-04 01:52] VITALS: BMI 24.3
[2017-08-04 02:00] VITALS: RESP 18; O2SAT 97
--- NOTE | 2017-08-04 02:50 | ED PDOC ---
HPI: Psych/Substance Abuse Time Seen by Provider: 08/04/17 02:23 Chief Complaint (Nursing): Alcohol Ingestion ED Caveat: Acuity of Condition History Per: Patient History/Exam Limitations: intoxication Onset/Duration Of Symptoms: Hrs Modifying Factor(s): Alcohol Additional Complaint(s): Patient well known to ED presenting with alcohol intoxication, patient endorses drug abuse as well but does not specify, history is limited at this time by intoxicaition. Past Medical History Reviewed: Unable To Obtain Vital Signs: Last Vital Signs Temp 98.5 F 08/04/17 01:54 Pulse 94 H 08/04/17 01:54 Resp 18 08/04/17 01:54 BP 111/78 08/04/17 01:54 Pulse Ox 97 08/04/17 01:54 - Medical History PMH: Asthma, CVA, Schizophrenia Denies: Diabetes, Hepatitis, HIV, HTN, Chronic Kidney Disease, Seizures, Sexually Transmitted Disease - Family History Family History: States: Unknown Family Hx - Immunization History Hx Tetanus Toxoid Vaccination: No Hx Influenza Vaccination: No Hx Pneumococcal Vaccination: No - Home Medications Home Medications: Ambulatory Orders Medication Instructions Recorded Folic Acid 1 mg PO DAILY #0 tab 06/02/14 Ipratropium/Albuterol Sulfate 2 felipe IH Q4 PRN #0 felipe 06/02/14 [Combivent] Thiamine [B-1] 100 mg PO DAILY #0 tab 06/02/14 chlordiazePOXIDE [Librium] 25 mg PO Q6 #0 cap 06/02/14 Gabapentin [Neurontin] 300 mg PO TID #90 cap 05/03/15 Lisinopril [Zestril] 2.5 mg PO DAILY #30 tab 05/03/15 QUEtiapine [SEROquel] 50 mg PO HS #30 tab 05/03/15 Naproxen [Naprosyn] 500 mg PO Q12H PRN #20 tablet 07/30/16 Amoxicillin/Clavulanate [Augmentin 1 tab PO BID #20 tab 09/04/16 875 MG-125 MG] levoFLOXacin [Levaquin] 750 mg PO DAILY #4 tab 04/26/17 Levofloxacin [Levaquin] 750 mg PO DAILY #6 tablet 07/07/17 - Allergies Allergies/Adverse Reactions: Allergies Allergy/AdvReac Type Severity Reaction Status Date / Time gentamicin [Gentamicin] Allergy RASH Verified 07/15/17 04:30 Macrolide Antibiotics Allergy RASH Verified 07/15/17 04:30 vancomycin Allergy RASH Verified 07/15/17 04:30 All Mycins Allergy RASH Uncoded 07/15/17 04:30 Chocolate AdvReac DIARRHEA Uncoded 07/15/17 04:30 Review of Systems Review Of Systems: ROS cannot be obtained secondary to pt's inabilty to answer questions. Physical Exam - Reviewed Nursing Documentation Reviewed: Yes Vital Signs Reviewed: Yes - Physical Exam Appears: Positive for: Non-toxic, No Acute Distress. Negative for: Well ( Intoxicated Appearing) Head Exam: Positive for: ATRAUMATIC, NORMAL INSPECTION, NORMOCEPHALIC Skin: Positive for: Normal Color, Warm, DRY Eye Exam: Positive for: EOMI, Normal appearance, PERRL ENT: Positive for: Normal ENT Inspection Neck: Positive for: Normal, Painless ROM Cardiovascular/Chest: Positive for: Regular Rate, Rhythm Respiratory: Positive for: CNT, Normal Breath Sounds Gastrointestinal/Abdominal: Positive for: Normal Exam, Soft Back: Positive for: Normal Inspection Extremity: Positive for: Normal ROM Neurologic/Psych: Positive for: Alert, Oriented. Negative for: Motor/Sensory Deficits, Aphasia - ECG O2 Sat by Pulse Oximetry: 97 Pulse Ox Interpretation: Normal Medical Decision Making Medical Decision MakinAM A/P: Hx of ETOH Abuse presenting with ETOH consumption -no signs of trauma -will check alcohol level and accucheck -will observe till sober 630AM PAtient is now awake and alert Sober walking with steady gait. Disposition - Clinical Impression Clinical Impression: Alcohol abuse - Disposition Referrals: Alcoholics Anonymous [Outside] Disposition Time: 06:30 Condition: IMPROVED Instructions: Alcohol Intoxication (ED), Abuse of Alcohol (ED), Alcohol Dependence (ED) Forms: [employer] (Lithuanian)
[2017-08-04 06:44] VITALS: BP 129/81; PULSE 86; TEMP 98.1
== END 2017-08-04 06:40 | disposition home or self-care (01) ==
LOC: H.ER 01:52
DX: F10.129 Alcohol abuse with intoxication, unspecified (principal); F20.9 Schizophrenia, unspecified; J45.909 Unspecified asthma, uncomplicated; Z86.73 Personal history of transient ischemic attack (TIA), and cerebral infarction without residual deficits

== ENCOUNTER 2017-11-14 21:30 | Emergency (ER) | payer MEDICAID ==
[2017-11-14 21:31] VITALS: BMI 24.3
[2017-11-14 21:32] VITALS: BP 129/87; PULSE 90; RESP 19; TEMP 98.6; O2SAT 99
--- NOTE | 2017-11-14 22:40 | ED PDOC ---
HPI: Psych/Substance Abuse Time Seen by Provider: 11/14/17 21:41 Chief Complaint (Nursing): Alcohol Ingestion Chief Complaint (Provider): etoh History Per: Patient, EMS Additional Complaint(s): 57 y/o male brought in by EMS for alcohol intoxication. Patient awake, admits to drinking today. Denies acute medical or psychiatric complaints. Of note, patient evaluated in ED for same earlier today, discharged at 17:00 ( has multiple account #'s) Past Medical History Reviewed: Historical Data, Nursing Documentation, Vital Signs Vital Signs: Last Vital Signs Temp 98.6 F 11/14/17 21:32 Pulse 90 11/14/17 21:32 Resp 19 11/14/17 21:32 BP 129/87 11/14/17 21:32 Pulse Ox 99 11/14/17 21:32 - Medical History PMH: Asthma, CVA, Schizophrenia Denies: Diabetes, Hepatitis, HIV, HTN, Chronic Kidney Disease, Seizures, Sexually Transmitted Disease - Family History Family History: States: Unknown Family Hx - Immunization History Hx Tetanus Toxoid Vaccination: No Hx Influenza Vaccination: No Hx Pneumococcal Vaccination: No - Home Medications Home Medications: Ambulatory Orders Medication Instructions Recorded Folic Acid 1 mg PO DAILY #0 tab 06/02/14 Ipratropium/Albuterol Sulfate 2 felipe IH Q4 PRN #0 felipe 06/02/14 [Combivent] Thiamine [B-1] 100 mg PO DAILY #0 tab 06/02/14 chlordiazePOXIDE [Librium] 25 mg PO Q6 #0 cap 06/02/14 Gabapentin [Neurontin] 300 mg PO TID #90 cap 05/03/15 Lisinopril [Zestril] 2.5 mg PO DAILY #30 tab 05/03/15 QUEtiapine [SEROquel] 50 mg PO HS #30 tab 05/03/15 Naproxen [Naprosyn] 500 mg PO Q12H PRN #20 tablet 07/30/16 Amoxicillin/Clavulanate [Augmentin 1 tab PO BID #20 tab 09/04/16 875 MG-125 MG] levoFLOXacin [Levaquin] 750 mg PO DAILY #4 tab 04/26/17 Levofloxacin [Levaquin] 750 mg PO DAILY #6 tablet 07/07/17 - Allergies Allergies/Adverse Reactions: Allergies Allergy/AdvReac Type Severity Reaction Status Date / Time gentamicin [Gentamicin] Allergy RASH Verified 07/15/17 04:30 Macrolide Antibiotics Allergy RASH Verified 07/15/17 04:30 vancomycin Allergy RASH Verified 07/15/17 04:30 All Mycins Allergy RASH Uncoded 07/15/17 04:30 Chocolate AdvReac DIARRHEA Uncoded 07/15/17 04:30 Review of Systems ROS Statement: Except As Marked, All Systems Reviewed And Found Negative Physical Exam - Reviewed Nursing Documentation Reviewed: Yes Vital Signs Reviewed: Yes - Physical Exam Appears: Positive for: Well, Non-toxic, No Acute Distress Head Exam: Positive for: ATRAUMATIC, NORMAL INSPECTION, NORMOCEPHALIC Skin: Positive for: Normal Color Eye Exam: Positive for: Normal appearance ENT: Positive for: Normal ENT Inspection Cardiovascular/Chest: Positive for: Regular Rate, Rhythm Respiratory: Positive for: Normal Breath Sounds Gastrointestinal/Abdominal: Positive for: Normal Exam Back: Positive for: Normal Inspection Extremity: Positive for: Normal ROM Neurologic/Psych: Positive for: Alert, Oriented (x3) - ECG O2 Sat by Pulse Oximetry: 99 - Progress ED Course And Treament: Patient ambulating steady gait Tolerated sandwich, juice Stable for discharge Disposition - Clinical Impression Clinical Impression: Substance abuse - Patient ED Disposition Is Patient to be Admitted: No Counseled Patient/Family Regarding: Diagnosis, Need For Followup - Disposition Disposition: Routine/Home Disposition Time: 22:41 Condition: STABLE
== END 2017-11-14 23:27 | disposition home or self-care (01) ==
LOC: H.ER 21:30
DX: F19.10 Other psychoactive substance abuse, uncomplicated (principal)

== ENCOUNTER 2017-11-15 03:34 | Emergency (ER) | payer MEDICAID ==
[2017-11-15 03:34] VITALS: BMI 24.3
--- NOTE | 2017-11-15 04:46 | ED PDOC ---
HPI: Psych/Substance Abuse Time Seen by Provider: 11/15/17 03:38 Chief Complaint (Nursing): Alcohol Ingestion Chief Complaint (Provider): Alcohol Ingestion ED Caveat: Intoxicated History Per: EMS History/Exam Limitations: intoxication Onset/Duration Of Symptoms: Hrs Current Symptoms Are (Timing): Still Present Associated Symptoms: denies: Suicidal Thoughts, Suicidal Plan Additional Complaint(s): Chris Delgado is a 57 year old male with a past medical history of schizophrenia and hepatitis C who was brought to the ED for evaluation of alcohol intoxication. Patient showed no signs of trauma. History is limited due to patient's intoxicated state. PMD: none provided Past Medical History Reviewed: Historical Data, Nursing Documentation, Vital Signs, Unable To Obtain Vital Signs: Last Vital Signs Temp 97.5 F L 11/15/17 03:39 Pulse 95 H 11/15/17 03:39 Resp 17 11/15/17 03:39 BP 142/97 H 11/15/17 03:39 Pulse Ox 96 11/15/17 03:39 - Medical History PMH: Asthma, CVA, Schizophrenia Denies: Diabetes, Hepatitis, HIV, HTN, Chronic Kidney Disease, Seizures, Sexually Transmitted Disease - Surgical History Surgical History: No Surg Hx - Family History Family History: States: Unknown Family Hx - Immunization History Hx Tetanus Toxoid Vaccination: No Hx Influenza Vaccination: No Hx Pneumococcal Vaccination: No - Home Medications Home Medications: Ambulatory Orders Medication Instructions Recorded Folic Acid 1 mg PO DAILY #0 tab 06/02/14 Ipratropium/Albuterol Sulfate 2 felipe IH Q4 PRN #0 felipe 06/02/14 [Combivent] Thiamine [B-1] 100 mg PO DAILY #0 tab 06/02/14 chlordiazePOXIDE [Librium] 25 mg PO Q6 #0 cap 06/02/14 Gabapentin [Neurontin] 300 mg PO TID #90 cap 05/03/15 Lisinopril [Zestril] 2.5 mg PO DAILY #30 tab 05/03/15 QUEtiapine [SEROquel] 50 mg PO HS #30 tab 05/03/15 Naproxen [Naprosyn] 500 mg PO Q12H PRN #20 tablet 07/30/16 Amoxicillin/Clavulanate [Augmentin 1 tab PO BID #20 tab 09/04/16 875 MG-125 MG] levoFLOXacin [Levaquin] 750 mg PO DAILY #4 tab 04/26/17 Levofloxacin [Levaquin] 750 mg PO DAILY #6 tablet 07/07/17 - Allergies Allergies/Adverse Reactions: Allergies Allergy/AdvReac Type Severity Reaction Status Date / Time gentamicin [Gentamicin] Allergy RASH Verified 07/15/17 04:30 Macrolide Antibiotics Allergy RASH Verified 07/15/17 04:30 vancomycin Allergy RASH Verified 07/15/17 04:30 All Mycins Allergy RASH Uncoded 07/15/17 04:30 Chocolate AdvReac DIARRHEA Uncoded 07/15/17 04:30 Review of Systems ROS Statement: Except As Marked, All Systems Reviewed And Found Negative Review Of Systems: ROS cannot be obtained secondary to pt's inabilty to answer questions. Physical Exam - Reviewed Nursing Documentation Reviewed: Yes Vital Signs Reviewed: Yes - Physical Exam Appears: Positive for: Non-toxic, No Acute Distress (disheveled and intoxicated appearing ) Head Exam: Positive for: ATRAUMATIC, NORMAL INSPECTION, NORMOCEPHALIC Skin: Positive for: Normal Color, Warm, DRY Eye Exam: Positive for: EOMI, Normal appearance, PERRL ENT: Positive for: Normal ENT Inspection Neck: Positive for: Normal Cardiovascular/Chest: Positive for: Regular Rate, Rhythm. Negative for: Murmur Respiratory: Positive for: Normal Breath Sounds. Negative for: Respiratory Distress Gastrointestinal/Abdominal: Positive for: Normal Exam, Soft. Negative for: Tenderness Back: Positive for: Normal Inspection Extremity: Positive for: Normal ROM. Negative for: Pedal Edema, Deformity Neurologic/Psych: Positive for: Alert. Negative for: Motor/Sensory Deficits - ECG O2 Sat by Pulse Oximetry: 96 (RA) Pulse Ox Interpretation: Normal Medical Decision Making Medical Decision Making: Time: 3:55 A/P: --57 year old male brought in for alcohol intoxication --No signs of external trauma noted --Patient was in ER twice today and had full workup in which he was positive for opiates, benzodiazepines, and methadone --Will check patient's alcohol level and accucheck, pending clinical sobriety 6:30 Lab verbally reports ETOH level of 109 Patient clinically sober at this time, alert and oriented Stable for discharge Steady gait Scribe Attestation: Documented by Shila Ortiz, acting as a scribe for Mihir Tavera MD. Provider Scribe Attestation: All medical record entries made by the Scribe were at my direction and personally dictated by me. I have reviewed the chart and agree that the record accurately reflects my personal performance of the history, physical exam, medical decision making, and the department course for this patient. I have also personally directed, reviewed, and agree with the discharge instructions and disposition. Disposition - Clinical Impression Clinical Impression: Alcohol abuse - Patient ED Disposition Is Patient to be Admitted: No - Disposition Referrals: Alcoholics Anonymous [Outside] Disposition: Routine/Home Disposition Time: 06:28 Condition: IMPROVED Instructions: Alcohol Intoxication (ED), Abuse of Alcohol (ED), Alcohol Dependence (ED), Alcohol Abuse and Alcoholism (DC) Forms: [employer] (Tongan)
--- NOTE | 2017-11-15 09:03 | CT ---
Date of service: 11/15/2017 PROCEDURE: CT HEAD WITHOUT CONTRAST. HISTORY: r/o ICH COMPARISON: Noncontrast head CT 06/24/2017 TECHNIQUE: Axial computed tomography images were obtained through the head/brain without intravenous contrast. Radiation dose: Total exam DLP = 1469.04 mGy-cm. This CT exam was performed using one or more of the following dose reduction techniques: Automated exposure control, adjustment of the mA and/or kV according to patient size, and/or use of iterative reconstruction technique. FINDINGS: Motion artifacted examination. HEMORRHAGE: No intracranial hemorrhage. BRAIN: Normal patel-white matter differentiation and density are appreciated throughout the cerebrum and cerebellum with the brainstem appearing unremarkable as well. There is no mass effect. There is no suspicious extra-axial fluid collection and the midline brain anatomy appears diffusely unremarkable. VENTRICLES: Unremarkable. No hydrocephalus. CALVARIUM: No destructive bony lesion or displaced fracture identified including through the skullbase. PARANASAL SINUSES: Unremarkable as visualized. No significant inflammatory changes. MASTOID AIR CELLS: Unremarkable as visualized. No inflammatory changes. OTHER FINDINGS: None. IMPRESSION: Unremarkable noncontrast head CT. No significant interval change compared with CT 06/24/2017. Motion artifacted examination.
--- NOTE | 2017-11-15 09:17 | RAD ---
Date of service: 11/15/2017 HISTORY: Shortness of breath COMPARISON: 07/07/2017 FINDINGS: LUNGS: The lungs are well inflated and clear. PLEURA: No significant pleural effusion identified, no pneumothorax apparent. CARDIOVASCULAR: There is mild cardiomegaly. OSSEOUS STRUCTURES: Within normal limits for the patient's age. VISUALIZED UPPER ABDOMEN: Normal. OTHER FINDINGS: None. IMPRESSION: No active pulmonary disease.
--- NOTE | 2017-11-15 09:29 | CARD ---
APPROVED REPORT Date of service: 11/15/2017 EKG Measurement Heart [id number] <Conclusion> Sinus rhythm with occasional premature ventricular complexes Poor R wave progression Otherwise nnormal ECG
--- NOTE | 2017-11-15 09:52 | RAD ---
Date of service: 11/15/2017 PROCEDURE: Radiographs of the pelvis. HISTORY: fall COMPARISON: None. FINDINGS: BONES: No fracture or destructive bony lesion is seen throughout the pelvic ring including the upper mid sacrum with the lower sacrum obscured by bowel. Bilateral hip joints appear unremarkable with no fracture related. JOINTS: Sacroiliac Joints: Unremarkable. Hip joints: Limited sclerosis of the weight-bearing articular cortex is identified symmetrically, compatible degenerative joint disease. The pubic symphysis is intact and appears unremarkable. OTHER FINDINGS: None. IMPRESSION: No fracture identified throughout the pelvic ring including bilateral hip joints. Degenerative bilateral hip joint changes are appreciated on a [id number] basis. The remainder of the pelvic ring appears unremarkable.
[2017-11-15 10:29] VITALS: BP 124/77; PULSE 79; RESP 19; TEMP 97; O2SAT 98
== END 2017-11-15 10:29 | disposition home or self-care (01) ==
LOC: H.ER 03:34
DX: F10.129 Alcohol abuse with intoxication, unspecified (principal); F20.9 Schizophrenia, unspecified; Y90.5 Blood alcohol level of 100-119 mg/100 ml; B18.2 Chronic viral hepatitis C; Z86.73 Personal history of transient ischemic attack (TIA), and cerebral infarction without residual deficits; J45.909 Unspecified asthma, uncomplicated; I49.3 Ventricular premature depolarization

== ENCOUNTER 2017-11-24 13:10 | Emergency (ER) | payer MEDICAID ==
[2017-11-24 13:10] VITALS: BMI 24.3
[2017-11-24 13:14] VITALS: TEMP 97.5
--- NOTE | 2017-11-24 15:00 | ED PDOC ---
HPI: Psych/Substance Abuse Time Seen by Provider: 11/24/17 13:13 Chief Complaint (Nursing): Alcohol Ingestion Chief Complaint (Provider): Alcohol Ingestion ED Caveat: Intoxicated History Per: Patient History/Exam Limitations: intoxication Additional Complaint(s): Patient is a 57 y/o male who was brought to the ED because he was found outside with a bottle of liquor. Patient admits to drinking alcohol and also is complaining of a headache. History is limited to due to patient's intoxication. Patient is well known to the ED for EtOH intoxication. Past Medical History Reviewed: Historical Data, Nursing Documentation, Vital Signs Vital Signs: Last Vital Signs Temp 97.5 F L 11/24/17 13:12 Pulse 88 11/24/17 13:12 Resp 16 11/24/17 13:12 BP 109/75 11/24/17 13:12 Pulse Ox 100 11/24/17 13:12 - Medical History PMH: Asthma, CVA, Schizophrenia Denies: Diabetes, Hepatitis, HIV, HTN, Chronic Kidney Disease, Seizures, Sexually Transmitted Disease - Family History Family History: States: Unknown Family Hx - Immunization History Hx Tetanus Toxoid Vaccination: No Hx Influenza Vaccination: No Hx Pneumococcal Vaccination: No - Home Medications Home Medications: Ambulatory Orders Medication Instructions Recorded Folic Acid 1 mg PO DAILY #0 tab 06/02/14 Ipratropium/Albuterol Sulfate 2 felipe IH Q4 PRN #0 felipe 06/02/14 [Combivent] Thiamine [B-1] 100 mg PO DAILY #0 tab 06/02/14 chlordiazePOXIDE [Librium] 25 mg PO Q6 #0 cap 06/02/14 Gabapentin [Neurontin] 300 mg PO TID #90 cap 05/03/15 Lisinopril [Zestril] 2.5 mg PO DAILY #30 tab 05/03/15 QUEtiapine [SEROquel] 50 mg PO HS #30 tab 05/03/15 Naproxen [Naprosyn] 500 mg PO Q12H PRN #20 tablet 07/30/16 Amoxicillin/Clavulanate [Augmentin 1 tab PO BID #20 tab 09/04/16 875 MG-125 MG] levoFLOXacin [Levaquin] 750 mg PO DAILY #4 tab 04/26/17 Levofloxacin [Levaquin] 750 mg PO DAILY #6 tablet 07/07/17 Amoxicillin/Clavulanate [Augmentin 1 tab PO BID #20 tab 11/24/17 500 MG-125 MG] - Allergies Allergies/Adverse Reactions: Allergies Allergy/AdvReac Type Severity Reaction Status Date / Time gentamicin [Gentamicin] Allergy RASH Verified 11/24/17 13:11 Macrolide Antibiotics Allergy RASH Verified 11/24/17 13:11 vancomycin Allergy RASH Verified 11/24/17 13:11 All Mycins Allergy RASH Uncoded 11/24/17 13:11 Chocolate AdvReac DIARRHEA Uncoded 11/24/17 13:11 Review of Systems Review Of Systems: ROS cannot be obtained secondary to pt's inabilty to answer questions. Physical Exam - Reviewed Nursing Documentation Reviewed: Yes Vital Signs Reviewed: Yes - Physical Exam Appears: Positive for: Non-toxic Head Exam: Positive for: ATRAUMATIC, NORMOCEPHALIC Skin: Positive for: Normal Color, Warm, Dry Eye Exam: Positive for: EOMI, Normal appearance, PERRL Neck: Positive for: Normal, Painless ROM, Supple Cardiovascular/Chest: Positive for: Regular Rate, Rhythm. Negative for: Murmur Respiratory: Positive for: Normal Breath Sounds. Negative for: Respiratory Distress Gastrointestinal/Abdominal: Positive for: Normal Exam, Soft. Negative for: Tenderness Back: Positive for: Normal Inspection. Negative for: L CVA Tenderness, R CVA Tenderness Extremity: Positive for: Normal ROM. Negative for: Pedal Edema, Deformity Neurologic/Psych: Positive for: Alert, Oriented, Mood/Affect (Alcohol on breath , slurred speech). Negative for: Motor/Sensory Deficits - ECG O2 Sat by Pulse Oximetry: 100 (RA) Pulse Ox Interpretation: Normal Medical Decision Making Medical Decision Making: Time: 14:20 Impression: Alcohol intoxication Initial Plan: --CT Head w/o contrast --Alcohol serum 17:[address] FINDINGS: HEMORRHAGE: No intracranial hemorrhage. BRAIN: No mass effect or edema. No atrophy or chronic microvascular ischemic changes. VENTRICLES: Unremarkable. No hydrocephalus. CALVARIUM: Unremarkable. PARANASAL SINUSES: Chronic right maxillary sinusitis. MASTOID AIR CELLS: Unremarkable as visualized. No inflammatory changes. OTHER FINDINGS: None. IMPRESSION: No intracranial mass, hemorrhage or evidence of acute infarct. Chronic right maxillary sinusitis. Otherwise unremarkable examination. Time: 17:55 Patient seen eating. He is requesting peanut butter jelly sandwich. Patient is informed of CT results. Time: 18:00 Upon provider reevaluation patient is feeling better, is medically stable, and requires no further treatment in the ED at this time. Counseling was provided and all questions were answered regarding diagnosis and need for follow up with PMD. There is agreement to discharge plan. Return if symptoms persist or worsen. Scribe Attestation: Documented by Lester De Leon, acting as a scribe for Randal Chung PA-C. Provider Scribe Attestation: All medical record entries made by the scribe were at my direction and personally dictated by me. I have reviewed the chart and agree that the record accurately reflects my personal performance of the history, physical exam, medical decision making, and the department course for this patient. I have also personally directed, reviewed, and agree with the discharge instructions and disposition. Disposition - Clinical Impression Clinical Impression: Sinusitis, Alcohol intoxication - Disposition Referrals: [facility] [Outside] [facility] [Outside] Disposition Time: 18:00 Condition: STABLE Additional Instructions: PAO BOWER, thank you for letting us take care of you today. Your provider was Alka Nicholson MD and you were treated for ETOH. The emergency medical care you received today was directed at your acute symptoms. If you were prescribed any medication, please fill it and take as directed. It may take several days for your symptoms to resolve. Return to the Emergency Department if your symptoms worsen, do not improve, or if you have any other problems. Please contact your doctor or call one of the physicians/clinics you have been referred to that are listed on the Patient Visit Information form that is included in your discharge packet. Bring any paperwork you were given at discharge with you along with any medications you are taking to your follow up visit. Our treatment cannot replace ongoing medical care by a primary care provider outside of the emergency department. Thank you for allowing the [facility] team to be part of your care today. If you had an X-Ray or CT scan: A Radiologist will review the ED reading if any change in treatment is needed we will contact you. If you had a blood, urine, or wound culture: It will take several days for the results, if any change in treatment is needed we will contact you. If you had an STI test: It will take 48 hours for the results. Please call after 1 week if you have not heard back. Prescriptions: Amoxicillin/Clavulanate [Augmentin 500 MG-125 MG] 1 tab PO BID #20 tab Instructions: Sinusitis, Adult (DC) Forms: TalkTo (Polish) Print Language: URUGUAYAN
--- NOTE | 2017-11-24 17:51 | CT ---
Date of service: 11/24/2017 PROCEDURE: CT HEAD WITHOUT CONTRAST. HISTORY: headache COMPARISON: 11/15/2017 TECHNIQUE: Axial computed tomography images were obtained through the head/brain without intravenous contrast. Radiation dose: Total exam DLP = 1089.21 mGy-cm. This CT exam was performed using one or more of the following dose reduction techniques: Automated exposure control, adjustment of the mA and/or kV according to patient size, and/or use of iterative reconstruction technique. FINDINGS: HEMORRHAGE: No intracranial hemorrhage. BRAIN: No mass effect or edema. No atrophy or chronic microvascular ischemic changes. VENTRICLES: Unremarkable. No hydrocephalus. CALVARIUM: Unremarkable. PARANASAL SINUSES: Chronic right maxillary sinusitis. MASTOID AIR CELLS: Unremarkable as visualized. No inflammatory changes. OTHER FINDINGS: None. IMPRESSION: No intracranial mass, hemorrhage or evidence of acute infarct. Chronic right maxillary sinusitis. Otherwise unremarkable examination.
[2017-11-24 18:41] VITALS: BP 138/72; PULSE 71; RESP 17
[2017-11-24 19:07] VITALS: O2SAT 100
== END 2017-11-24 18:41 | disposition home or self-care (01) ==
LOC: H.ER 13:10
DX: J32.0 Chronic maxillary sinusitis (principal); F10.129 Alcohol abuse with intoxication, unspecified; Z86.59 Personal history of other mental and behavioral disorders; J45.909 Unspecified asthma, uncomplicated; Z86.73 Personal history of transient ischemic attack (TIA), and cerebral infarction without residual deficits; Y90.6 Blood alcohol level of 120-199 mg/100 ml

== ENCOUNTER 2017-11-28 07:22 | Emergency (ER) | payer MEDICAID ==
[2017-11-28 07:27] VITALS: BMI 19.0
--- NOTE | 2017-11-28 07:36 | ED PDOC ---
HPI: Psych/Substance Abuse Time Seen by Provider: 11/28/17 07:29 History Per: EMS Onset/Duration Of Symptoms: Unknown Current Symptoms Are (Timing): Still Present Modifying Factor(s): Alcohol Additional Complaint(s): Brought by EMS after being found in street. Pt admits to ETOH ingestion. Past Medical History Vital Signs: Last Vital Signs Temp 98.8 F 11/28/17 07:27 Pulse 90 11/28/17 07:27 Resp 20 11/28/17 07:27 BP 112/66 11/28/17 07:27 Pulse Ox 98 11/28/17 07:27 - Medical History PMH: Asthma, CVA, Schizophrenia Denies: Diabetes, Hepatitis, HIV, HTN, Chronic Kidney Disease, Seizures, Sexually Transmitted Disease - Family History Family History: States: Unknown Family Hx - Immunization History Hx Tetanus Toxoid Vaccination: No Hx Influenza Vaccination: No Hx Pneumococcal Vaccination: No - Home Medications Home Medications: Ambulatory Orders Medication Instructions Recorded Folic Acid 1 mg PO DAILY #0 tab 06/02/14 Ipratropium/Albuterol Sulfate 2 felipe IH Q4 PRN #0 felipe 06/02/14 [Combivent] Thiamine [B-1] 100 mg PO DAILY #0 tab 06/02/14 chlordiazePOXIDE [Librium] 25 mg PO Q6 #0 cap 06/02/14 Gabapentin [Neurontin] 300 mg PO TID #90 cap 05/03/15 Lisinopril [Zestril] 2.5 mg PO DAILY #30 tab 05/03/15 QUEtiapine [SEROquel] 50 mg PO HS #30 tab 05/03/15 Naproxen [Naprosyn] 500 mg PO Q12H PRN #20 tablet 07/30/16 Amoxicillin/Clavulanate [Augmentin 1 tab PO BID #20 tab 09/04/16 875 MG-125 MG] levoFLOXacin [Levaquin] 750 mg PO DAILY #4 tab 04/26/17 Levofloxacin [Levaquin] 750 mg PO DAILY #6 tablet 07/07/17 Amoxicillin/Clavulanate [Augmentin 1 tab PO BID #20 tab 11/24/17 500 MG-125 MG] - Allergies Allergies/Adverse Reactions: Allergies Allergy/AdvReac Type Severity Reaction Status Date / Time gentamicin [Gentamicin] Allergy RASH Verified 11/24/17 13:11 Macrolide Antibiotics Allergy RASH Verified 11/24/17 13:11 vancomycin Allergy RASH Verified 11/24/17 13:11 All Mycins Allergy RASH Uncoded 11/24/17 13:11 Chocolate AdvReac DIARRHEA Uncoded 11/24/17 13:11 Review of Systems Review Of Systems: ROS cannot be obtained secondary to pt's inabilty to answer questions. Physical Exam - Physical Exam Appears: Positive for: Non-toxic, No Acute Distress Head Exam: Positive for: ATRAUMATIC, NORMAL INSPECTION, NORMOCEPHALIC Skin: Positive for: Normal Color, Warm, DRY Neck: Positive for: Normal, Painless ROM Cardiovascular/Chest: Positive for: Regular Rate, Rhythm Respiratory: Positive for: CNT, Normal Breath Sounds Extremity: Positive for: Normal ROM Neurologic/Psych: Negative for: Alert (Sleepy arousable), Motor/Sensory Deficits - ECG O2 Sat by Pulse Oximetry: 98 - Progress Re-evaluation Time: 09:28 Condition: Improved (Awake alert oriented x 3 No focal neuro deficits) Disposition - Clinical Impression Clinical Impression: Alcohol abuse - Patient ED Disposition Is Patient to be Admitted: No - Disposition [facility]errals: [facility] [Outside] Disposition: Routine/Home Disposition Time: 09:29 Condition: FAIR Instructions: Alcohol Intoxication (ED), Abuse of Alcohol (ED), Alcohol Dependence (ED)
[2017-11-28 09:55] VITALS: BP 115/69; PULSE 78; RESP 16; TEMP 97.6; O2SAT 96
== END 2017-11-28 09:53 | disposition home or self-care (01) ==
LOC: H.ER 07:22
DX: F10.10 Alcohol abuse, uncomplicated (principal); Z86.59 Personal history of other mental and behavioral disorders; J45.909 Unspecified asthma, uncomplicated; Z86.73 Personal history of transient ischemic attack (TIA), and cerebral infarction without residual deficits; Y90.6 Blood alcohol level of 120-199 mg/100 ml

== ENCOUNTER 2018-01-03 17:16 | Inpatient (IN) | payer MEDICAID ==
[2018-01-03 17:16] VITALS: BMI 19.0
--- NOTE | 2018-01-03 18:50 | ED PDOC ---
HPI: Psych/Substance Abuse Chief Complaint (Provider): Psychiatric Evaluation History Per: Patient History/Exam Limitations: no limitations Onset/Duration Of Symptoms: Hrs Suicide/Self Injury Attempted (Context): None Associated Symptoms: Depression, Suicidal Thoughts Additional History Per: EMS Additional Complaint(s): 57 y/o male brought in to the ED for psychiatric evaluation. Patient states he is cold and no longer wants to be homeless. He went to the [facility] to try to turn himself in, and was told he had no warrants. At that point, patient states he became suicidal. He describes wanting to jump in front of a train and end it all. Otherwise he denies any HI or hallucinations. PMD: Unknown <Randal Chung - Last Filed: 01/03/18 22:25> <Wil Barajas III - Last Filed: 01/08/18 13:38> Time Seen by Provider: 01/03/18 17:46 Chief Complaint (Nursing): Psychiatric Evaluation Supervising Attending Note - Attestation: I have personally seen and examined this patient.: Yes I have fully participated in the care of the patient.: Yes - Notes: Notes:: 57yo male with hx etoh abuse, now worsening liver function now jaundice, will require hospitalization. <Wil Barajas III - Last Filed: 01/08/18 13:38> Past Medical History Reviewed: Historical Data, Nursing Documentation, Vital Signs Vital Signs: Last Vital Signs Temp 98.4 F 01/03/18 17:24 Pulse 78 01/03/18 17:24 Resp 16 01/03/18 17:24 BP 118/85 01/03/18 17:24 Pulse Ox 100 01/03/18 17:24 - Medical History PMH: Asthma, Bronchitis, Cardia Arrhythmia, CVA, Depression, HIV, Pneumonia, Schizophrenia Denies: Diabetes, Hepatitis, HTN, Chronic Kidney Disease, Seizures, Sexually Transmitted Disease - Family History Family History: States: Unknown Family Hx - Immunization History Hx Tetanus Toxoid Vaccination: No Hx Influenza Vaccination: No Hx Pneumococcal Vaccination: No <Randal Chung - Last Filed: 01/03/18 22:25> Vital Signs: Last Vital Signs Temp 97.7 F 01/08/18 07:53 Pulse 69 01/08/18 07:53 Resp 20 01/08/18 07:53 BP 148/96 H 01/08/18 07:53 Pulse Ox 100 01/08/18 07:53 <Wil Barajas III - Last Filed: 01/08/18 13:38> - Home Medications Home Medications: Ambulatory Orders Medication Instructions Recorded RX: No Known Home Med 12/26/17 - Allergies Allergies/Adverse Reactions: Allergies Allergy/AdvReac Type Severity Reaction Status Date / Time gentamicin [Gentamicin] Allergy RASH Verified 12/26/17 09:50 Macrolide Antibiotics Allergy RASH Verified 12/26/17 09:50 vancomycin Allergy RASH Verified 12/26/17 09:50 All Mycins Allergy RASH Uncoded 12/15/17 16:01 Chocolate AdvReac DIARRHEA Uncoded 12/15/17 16:01 Review of Systems ROS Statement: Except As Marked, All Systems Reviewed And Found Negative Constitutional: Negative for: Fever Cardiovascular: Negative for: Chest Pain Respiratory: Negative for: Shortness of Breath Gastrointestinal: Negative for: Abdominal Pain Neurological: Negative for: Weakness Psych: Positive for: Depression, Suicidal ideation. Negative for: Other (homicidal ideation, hallucinations) <Randal Chung - Last Filed: 01/03/18 22:25> Physical Exam - Reviewed Nursing Documentation Reviewed: Yes Vital Signs Reviewed: Yes - Physical Exam Appears: Positive for: Non-toxic, No Acute Distress Head Exam: Positive for: ATRAUMATIC, NORMAL INSPECTION, NORMOCEPHALIC Skin: Positive for: Normal Color, Warm, DRY Eye Exam: Positive for: Normal appearance Neck: Positive for: Normal, Painless ROM Cardiovascular/Chest: Positive for: Regular Rate, Rhythm Respiratory: Positive for: Normal Breath Sounds. Negative for: Accessory Muscle Use, Respiratory Distress Back: Positive for: Other (Left buttock: + healing, non-draining, non- erythematous, non-fluctuant drained abscess) Extremity: Negative for: Pedal Edema, Deformity Neurologic/Psych: Positive for: Alert, Oriented (x3), Gait (steady) <Randal Chung - Last Filed: 01/03/18 22:25> - Laboratory Results Result Diagrams: 01/03/18 19:00 01/03/18 19:00 - ECG ECG: Positive for: Interpreted By Me ECG Rhythm: Positive for: Sinus Rhythm. Negative for: ST/T Changes Rate: 76 O2 Sat by Pulse Oximetry: 100 (RA) Pulse Ox Interpretation: Normal <Randal Chung - Last Filed: 01/03/18 22:25> - Laboratory Results Result Diagrams: 01/07/18 05:55 01/08/18 05:45 <Wil Barajas III - Last Filed: 01/08/18 13:38> Medical Decision Making Medical Decision Making: Impression: Suicidal ideation Initial Plan: --EKG --Chest x-ray --Blood work --UA, UDS --Placed on 1:1 observation --Crisis evaluation Pt. evaluated by Dr. Barajas. RUQ US, lipase ordered. Case d/w Dr. Beebe and arrangements made for admission. Case d/w Dr. Jones, covering Dr. Mazariegos, and recommends hydration with LR, repeat CMP in AM, and STAT ammonia level. -- Scribe Attestation: Documented by Breanne Umanzor, acting as a scribe for Randal Chung PA-C. Provider Scribe Attestation: All medical record entries made by the Scribe were at my direction and personally dictated by me. I have reviewed the chart and agree that the record accurately reflects my personal performance of the history, physical exam, medical decision making, and the department course for this patient. I have also personally directed, reviewed, and agree with the discharge instructions and disposition. 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 <Randal Chung - Last Filed: 01/03/18 22:25>
--- NOTE | 2018-01-03 19:00 | RAD ---
Date of service: 01/03/2018 HISTORY: clearance COMPARISON: Chest radiograph dated 12/15/2017. FINDINGS: LUNGS: No active pulmonary disease. PLEURA: No significant pleural effusion identified, no pneumothorax apparent. CARDIOVASCULAR: Cardiomediastinal silhouette stably enlarged OSSEOUS STRUCTURES: Old right lateral 6th rib fracture with breech to 5th rib redemonstrated. Unchanged. VISUALIZED UPPER ABDOMEN: Normal. OTHER FINDINGS: None. IMPRESSION: No active disease.
[2018-01-03 19:32] LABS: BASO # 0.1 K/uL (0.0-0.2); BASO % 1.2 % (0.0-2.0); EOS # 0.2 K/uL (0.0-0.7); EOS % 3.3 % (0.0-4.0); HEMOGLOBIN 11.9 g/dL (12.0-18.0); LYMPH # 1.8 K/uL (1.0-4.3); LYMPH % 28.5 % (20.0-40.0); MEAN CELL VOLUME 92.9 fl (80.0-94.0); MEAN CORPUSCULAR HEMOGLOBIN 31.2 pg (27.0-31.0); MEAN CORPUSCULAR HGB CONC 33.6 g/dL (33.0-37.0); MEAN PLATELET VOLUME 9.3 fl (7.2-11.7); MONO # 0.4 K/uL (0.0-0.8); MONO % 6.8 % (0.0-10.0); NEUT # 3.8 K/uL (1.8-7.0); NEUT % 60.2 % (50.0-75.0); NRBC % 0.3 % (0.0-0.0); RBC 3.81 Mil/uL (4.40-5.90); RED CELL DISTRIBUTION WIDTH 17.1 % (11.5-14.5); WHITE BLOOD COUNT 6.3 K/uL (4.8-10.8)
[2018-01-03 19:48] LABS: ALB/GLOB RATIO 0.5 (1.0-2.1); ALBUMIN 2.6 g/dL (3.5-5.0); ALT/SGPT 6 U/L (21-72); AST/SGOT 153 U/L (17-59); BLOOD UREA NITROGEN 17 mg/dl (9-20); CALCIUM 7.7 mg/dL (8.4-10.2); GFR NON-AFRICAN AMERICAN > 60
[2018-01-03 20:42] LABS: BARBITURATES, UR NEGATIVE (NEGATIVE); BENZODIAZEPINES, UR POSITIVE (NEGATIVE); OPIATES, UR POSITIVE (NEGATIVE); PHENCYCLIDINE, UR NEGATIVE (NEGATIVE)
[2018-01-03 20:54] LABS: SQUAMOUS EPITHIAL 2 /hpf (0-5); URINE BACTERIA RARE (<OCC); URINE BILIRUBIN MODERATE (NEGATIVE); URINE BLOOD MODERATE (NEGATIVE); URINE CLARITY CLOUDY (Clear); URINE COLOR AMBER (YELLOW); URINE GLUCOSE (UA) NEG (Normal); URINE LEUKOCYTE ESTERASE NEG Leu/uL (Negative); URINE PROTEIN 30 mg/dL (NEGATIVE)
[2018-01-03] MEDS ORDERED: Thiamine 100 mg/ml Inj IM ONE (21:30)
[2018-01-03] MEDS ORDERED: Thiamine 100 mg/ml Inj ONE (21:40)
[2018-01-03] MEDS ORDERED: Lactated Ringer's 1,000 ML IV SCH ×2 (22:00)
[2018-01-03 22:14] LABS: INR 1.4; PROTHROMBIN TIME 15.3 Seconds (9.8-13.1)
[2018-01-03 22:16] LABS: PARTIAL THROMBOPLASTIN TIME 41.1 Seconds (25.6-37.1)
[2018-01-03] MEDS: Dextrose 5%/0.9% NS 1,000 ML IV SCH (23:56)
[2018-01-04 05:45] LABS: HEMOGLOBIN 12.2 g/dL (12.0-18.0); MEAN CELL VOLUME 92.6 fl (80.0-94.0); MEAN CORPUSCULAR HEMOGLOBIN 31.3 pg (27.0-31.0); MEAN CORPUSCULAR HGB CONC 33.8 g/dL (33.0-37.0); RBC 3.88 Mil/uL (4.40-5.90); RED CELL DISTRIBUTION WIDTH 16.5 % (11.5-14.5); WHITE BLOOD COUNT 4.8 K/uL (4.8-10.8)
[2018-01-04 05:58] LABS: LDL CHOLESTEROL 53 mg/dL (0-129)
[2018-01-04 06:08] LABS: ALB/GLOB RATIO 0.4 (1.0-2.1); ALT/SGPT 23 U/L (21-72); AST/SGOT 98 U/L (17-59); BLOOD UREA NITROGEN 14 mg/dl (9-20); CALCIUM 7.7 mg/dL (8.4-10.2); GFR NON-AFRICAN AMERICAN > 60; HDL CHOLESTEROL 9 MG/DL (30-70)
--- NOTE | 2018-01-04 08:42 | CARD ---
APPROVED REPORT Date of service: 01/03/2018 EKG Measurement Heart [id number] <Conclusion> Normal sinus rhythm Cannot rule out Anterior infarct, age undetermined Abnormal ECG
[2018-01-04] MEDS ORDERED: Thiamine 100 mg/ml Inj IM SCH (09:00)
[2018-01-04] MEDS: Thiamine 100 mg/ml Inj IV SCH (09:31)
[2018-01-04] MEDS: Dextrose 5%/0.9% NS 1,000 ML IV SCH ×2 (09:32→21:36)
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
--- NOTE | 2018-01-04 11:17 | US ---
Date of service: 01/03/2018 HISTORY: RUQ COMPARISON: None. TECHNIQUE: Sonographic evaluation of the right upper quadrant of the abdomen. FINDINGS: LIVER: Measures 16.8 cm in length. Normal echogenicity of the liver parenchyma. No mass. No intrahepatic bile duct dilatation. GALLBLADDER: Contracted gallbladder with thickened wall, likely related to contracted state. COMMON BILE DUCT: Measures 6 mm. No stones. No dilatation. PANCREAS: Unremarkable as visualized. No mass. No ductal dilatation. RIGHT KIDNEY: Measures 11.0 x 5.2 x 5.3 cm in length. Normal echogenicity. No calculus, mass, or hydronephrosis. AORTA: No aneurysmal dilatation. IVC: Unremarkable. OTHER FINDINGS: None . IMPRESSION: Unremarkable right upper quadrant ultrasound.
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
[2018-01-04] MEDS: Santyl Collagenase OINTMENT TOP SCH (13:50)
[2018-01-04 15:23] LABS: GAMMA GLUTAMYL TRANSPEPTIDASE 251 U/L (8-78)
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
[2018-01-05 05:21] LABS: BASO # 0.1 K/uL (0.0-0.2); BASO % 1.4 % (0.0-2.0); EOS # 0.2 K/uL (0.0-0.7); EOS % 3.8 % (0.0-4.0); HEMOGLOBIN 12.4 g/dL (12.0-18.0); LYMPH # 1.5 K/uL (1.0-4.3); LYMPH % 29.6 % (20.0-40.0); MEAN CELL VOLUME 92.4 fl (80.0-94.0); MEAN CORPUSCULAR HEMOGLOBIN 31.4 pg (27.0-31.0); MONO # 0.4 K/uL (0.0-0.8); NEUT % 58.2 % (50.0-75.0); NRBC % 0.3 % (0.0-0.0); RBC 3.93 Mil/uL (4.40-5.90); RED CELL DISTRIBUTION WIDTH 16.9 % (11.5-14.5); WHITE BLOOD COUNT 5.2 K/uL (4.8-10.8)
[2018-01-05 05:23] LABS: ALB/GLOB RATIO 0.4 (1.0-2.1); ALT/SGPT 24 U/L (21-72); AMYLASE 191 U/L (30-110); AST/SGOT 96 U/L (17-59); BLOOD UREA NITROGEN 14 mg/dl (9-20); CALCIUM 7.7 mg/dL (8.4-10.2); GFR NON-AFRICAN AMERICAN > 60; LIPASE 692 U/L (23-300)
--- NOTE | 2018-01-05 12:23 | MRI ---
Date of service: 01/05/2018 PROCEDURE: Magnetic Resonance Cholangiopancreatography HISTORY: Obstructive jaundice COMPARISON: None available. TECHNIQUE: Multiplanar, multisequence MR images of the abdomen were obtained, including heavily T2 weighted MRCP images of the biliary system. Rotating maximum intensity projection images of the biliary system were generated. FINDINGS: Markedly limited examination due to image acquisition technique, and patient motion. MRCP: The common bile duct is at the upper limits of normal in size. No evidence of choledocholithiasis. No intrahepatic biliary ductal dilatation. LIVER: Unremarkable. GALLBLADDER: Contracted. No cholelithiasis. Thickened wall. SPLEEN: Splenomegaly measuring up to 14.4 cm. PANCREAS: Difficult to evaluate, but grossly unremarkable. ADRENALS: Difficult to evaluate, but grossly unremarkable. KIDNEYS: Unremarkable. AORTA: No aneurysm. ASCITES: Small volume ascites. OTHER FINDINGS: Cardiomegaly. Trace bilateral pleural effusions. IMPRESSION: Very limited examination. CBD at the upper limits of normal in size without evidence of choledocholithiasis. Contracted gallbladder without cholelithiasis. Thickened wall which is nonspecific, and likely is reactive. Gallbladder wall thickening is a nonspecific finding which can be seen with ascites, hepatitis, cholecystitis, CHF or hypoproteinemic states. Clinical correlation is recommended. Small volume ascites. Splenomegaly. Trace bilateral pleural effusions.
[2018-01-05] MEDS: Santyl Collagenase OINTMENT TOP SCH (12:35)
[2018-01-05] MEDS: Thiamine 100 mg/ml Inj IV SCH (12:36)
[2018-01-05 16:58] LABS: % CD4 (T HELPER CELL) 6 Percent (30-61); % CD8 (SUPPRESSOR T CELL) 73 Percent (12-42); ABSOLUTE CD4 CELLS 89 Cells/mcL (490-1740); ABSOLUTE CD8 CELLS 1003 Cells/mcL (180-1170); ABSOLUTE LYMPHOCYTES 1368 Cells/mcL (850-3900); HELPER/SUPPRESSOR RATIO 0.09 Ratio (0.86-5.00)
[2018-01-05] MEDS: Sodium Chloride 0.9% 1,000 ML IV SCH (17:00)
--- NOTE | 2018-01-05 21:41 | CP.PCM.PN ---
Subjective - Date & Time of Evaluation Date of Evaluation: 01/05/18 Time of Evaluation: 20:20 Objective - Vital Signs/Intake and Output Vital Signs (last 24 hours): Temp Pulse Resp BP Pulse Ox 97.7 F 78 20 138/89 98 01/05/18 19:49 01/05/18 19:49 01/05/18 19:49 01/05/18 19:49 01/05/18 19:49 - Medications Medications: Current Medications Collagenase (Santyl) 1 applic TOP DAILY VON Last Admin: 01/05/18 12:35 Dose: 1 unit Folic Acid 1 mg/ Sodium (Chloride) 100.2 mls @ 60 mls/hr IVPB DAILY VON Last Admin: 01/05/18 14:15 Dose: 60 mls/hr Sodium Chloride (Sodium Chloride 0.9%) 1,000 mls @ 100 mls/hr IV .Q10H VON Stop: 01/06/18 16:31 Last Admin: 01/05/18 17:00 Dose: 100 mls/hr Lorazepam (Ativan) 2 mg IVP Q6 VON Last Admin: 01/05/18 15:45 Dose: 2 mg Thiamine HCl (Vitamin B1 Inj) 100 mg IV DAILY VON Last Admin: 01/05/18 12:36 Dose: 100 mg - Labs Labs: 01/05/18 04:35 01/05/18 04:35 PT 15.3 Seconds (9.8-13.1) H 01/03/18 22:00 INR 1.4 01/03/18 22:00 APTT 41.1 Seconds (25.6-37.1) H 01/03/18 22:00
[2018-01-06 00:29] VITALS: O2SAT 100
[2018-01-06] MEDS: Sodium Chloride 0.9% 1,000 ML IV SCH ×2 (04:23→14:09)
[2018-01-06] MEDS: Santyl Collagenase OINTMENT TOP SCH (08:35)
[2018-01-06] MEDS: Thiamine 100 mg/ml Inj IV SCH (08:36)
[2018-01-06 08:47] VITALS: RESP 20
[2018-01-06 08:50] LABS: HEPATITIS B SURFACE AG Negative (NEGATIVE)
[2018-01-06 08:52] LABS: HEPATITIS B SURFACE AG Negative (NEGATIVE)
[2018-01-06 08:55] LABS: HEPATITIS A IGM NEGATIVE (NEGATIVE); HEPATITIS B CORE AB NEGATIVE (NEGATIVE)
[2018-01-06 08:58] LABS: HEPATITIS A IGM NEGATIVE (NEGATIVE); HEPATITIS B CORE AB NEGATIVE (NEGATIVE)
[2018-01-06 11:13] LABS: HEPATITIS C ANTIBODY REACTIVE (NEGATIVE)
[2018-01-06 11:14] LABS: HEPATITIS C ANTIBODY REACTIVE (NEGATIVE)
--- NOTE | 2018-01-06 23:46 | CP.PCM.PN ---
Subjective - Date & Time of Evaluation Date of Evaluation: 01/06/18 Time of Evaluation: 14:55 Objective - Vital Signs/Intake and Output Vital Signs (last 24 hours): Temp Pulse Resp BP Pulse Ox 97.5 F L 68 20 132/92 H 100 01/06/18 16:16 01/06/18 16:16 01/06/18 16:16 01/06/18 16:16 01/06/18 16:16 - Medications Medications: Current Medications Collagenase (Santyl) 1 applic TOP DAILY VON Last Admin: 01/06/18 08:35 Dose: 1 unit Folic Acid 1 mg/ Sodium (Chloride) 100.2 mls @ 60 mls/hr IVPB DAILY VON Last Admin: 01/06/18 10:13 Dose: 60 mls/hr Ketorolac Tromethamine (Toradol) 15 mg IVP Q6 PRN PRN Reason: Pain, moderate (4-7) Last Admin: 01/06/18 18:29 Dose: 15 mg Lorazepam (Ativan) 2 mg IVP Q6H VON Last Admin: 01/06/18 18:46 Dose: 2 mg Thiamine HCl (Vitamin B1 Inj) 100 mg IV DAILY VON Last Admin: 01/06/18 08:36 Dose: 100 mg - Labs Labs: 01/05/18 04:35 01/05/18 04:35 PT 15.3 Seconds (9.8-13.1) H 01/03/18 22:00 INR 1.4 01/03/18 22:00 APTT 41.1 Seconds (25.6-37.1) H 01/03/18 22:00
[2018-01-07 06:12] LABS: BASO # 0.1 K/uL (0.0-0.2); BASO % 1.4 % (0.0-2.0); EOS # 0.2 K/uL (0.0-0.7); EOS % 4.2 % (0.0-4.0); HEMOGLOBIN 12.8 g/dL (12.0-18.0); MEAN CELL VOLUME 93.1 fl (80.0-94.0); MEAN CORPUSCULAR HEMOGLOBIN 31.3 pg (27.0-31.0); MEAN CORPUSCULAR HGB CONC 33.6 g/dL (33.0-37.0); MEAN PLATELET VOLUME 8.8 fl (7.2-11.7); MONO # 0.4 K/uL (0.0-0.8); MONO % 6.4 % (0.0-10.0); NEUT # 3.1 K/uL (1.8-7.0); NRBC % 0.1 % (0.0-0.0); RBC 4.1 Mil/uL (4.40-5.90); RED CELL DISTRIBUTION WIDTH 17.8 % (11.5-14.5); WHITE BLOOD COUNT 5.8 K/uL (4.8-10.8)
[2018-01-07 06:22] LABS: ALB/GLOB RATIO 0.4 (1.0-2.1); ALBUMIN 2.1 g/dL (3.5-5.0); ALT/SGPT 25 U/L (21-72); AST/SGOT 98 U/L (17-59); BLOOD UREA NITROGEN 18 mg/dl (9-20); CALCIUM 7.7 mg/dL (8.4-10.2); GFR NON-AFRICAN AMERICAN > 60
[2018-01-07] MEDS: Santyl Collagenase OINTMENT TOP SCH (08:39)
[2018-01-07] MEDS: Thiamine 100 mg/ml Inj IV SCH (09:59)
[2018-01-07] MEDS: Sodium Chloride 0.9% 1,000 ML IV SCH ×2 (14:36→23:15)
--- NOTE | 2018-01-07 23:29 | CP.PCM.PN ---
Subjective - Date & Time of Evaluation Date of Evaluation: 01/07/18 Time of Evaluation: 15:55 Objective - Vital Signs/Intake and Output Vital Signs (last 24 hours): Temp Pulse Resp BP Pulse Ox 97.9 F 73 20 131/85 100 01/07/18 16:01 01/07/18 16:01 01/07/18 16:01 01/07/18 16:01 01/07/18 16:01 - Medications Medications: Current Medications Collagenase (Santyl) 1 applic TOP DAILY [facility] Last Admin: 01/07/18 08:39 Dose: 1 unit Folic Acid 1 mg/ Sodium (Chloride) 100.2 mls @ 60 mls/hr IVPB DAILY [facility] Last Admin: 01/07/18 08:38 Dose: 60 mls/hr Sodium Chloride (Sodium Chloride 0.9%) 1,000 mls @ 100 mls/hr IV .Q10H [facility] Stop: 01/08/18 13:18 Last Admin: 01/07/18 14:36 Dose: 100 mls/hr Ketorolac Tromethamine (Toradol) 15 mg IVP Q6 PRN PRN Reason: Pain, moderate (4-7) Last Admin: 01/07/18 09:30 Dose: 15 mg Ketorolac Tromethamine (Toradol) 30 mg IVP Q6 PRN PRN Reason: Pain, severe (8-10) Last Admin: 01/07/18 17:21 Dose: 30 mg Lorazepam (Ativan) 1 mg IVP Q12 [facility] Last Admin: 01/07/18 21:38 Dose: 1 mg Thiamine HCl (Vitamin B1 Inj) 100 mg IV DAILY [facility] Last Admin: 01/07/18 09:59 Dose: 100 mg - Labs Labs: 01/07/18 05:55 01/07/18 05:55 PT 15.3 Seconds (9.8-13.1) H 01/03/18 22:00 INR 1.4 01/03/18 22:00 APTT 41.1 Seconds (25.6-37.1) H 01/03/18 22:00
[2018-01-08] MEDS: Sodium Chloride 0.9% 1,000 ML IV SCH (01:01)
[2018-01-08 07:25] LABS: ALB/GLOB RATIO 0.4 (1.0-2.1); ALBUMIN 2.1 g/dL (3.5-5.0); ALT/SGPT 26 U/L (21-72); AST/SGOT 103 U/L (17-59); BLOOD UREA NITROGEN 16 mg/dl (9-20); CALCIUM 7.7 mg/dL (8.4-10.2); GFR NON-AFRICAN AMERICAN > 60; LIPASE 705 U/L (23-300)
[2018-01-08 07:55] VITALS: BP 148/96; PULSE 69; TEMP 97.7
[2018-01-08] MEDS: Thiamine 100 mg/ml Inj IV SCH (09:01)
--- NOTE | 2018-01-09 12:37 | CP.PCM.DIS ---
Provider - Provider Date of Admission: 01/03/18 21:30 Attending physician: Singh Beebe MD Time Spent in preparation of Discharge (in minutes): 25 Diagnosis - Discharge Diagnosis (1) Alcohol abuse Status: Acute (2) Alcohol dependence Status: Acute (3) Depression Status: Acute Priority: High (4) Drug abuse Status: Acute (5) HIV disease Status: Acute (6) Homelessness Status: Acute (7) Hyperbilirubinemia Status: Acute Priority: High (8) DJD (degenerative joint disease) Status: Chronic Priority: Low Hospital Course - Lab Results Lab Results: Most Recent Lab Values WBC 5.8 K/uL (4.8-10.8) 01/07/18 05:55 RBC 4.10 Mil/uL (4.40-5.90) L 01/07/18 05:55 Hgb 12.8 g/dL (12.0-18.0) 01/07/18 05:55 Hct 38.1 % (35.0-51.0) 01/07/18 05:55 MCV 93.1 fl (80.0-94.0) 01/07/18 05:55 MCH 31.3 pg (27.0-31.0) H 01/07/18 05:55 MCHC 33.6 g/dL (33.0-37.0) 01/07/18 05:55 RDW 17.8 % (11.5-14.5) H 01/07/18 05:55 Plt Count 98 K/uL (130-400) L 01/07/18 05:55 MPV 8.8 fl (7.2-11.7) 01/07/18 05:55 Neut % (Auto) 53.0 % (50.0-75.0) 01/07/18 05:55 Lymph % (Auto) 35.0 % (20.0-40.0) 01/07/18 05:55 [place] % (Auto) 6.4 % (0.0-10.0) 01/07/18 05:55 Eos % (Auto) 4.2 % (0.0-4.0) H 01/07/18 05:55 Baso % (Auto) 1.4 % (0.0-2.0) 01/07/18 05:55 Neut # (Auto) 3.1 K/uL (1.8-7.0) 01/07/18 05:55 Lymph # (Auto) 2.0 K/uL (1.0-4.3) 01/07/18 05:55 [place] # (Auto) 0.4 K/uL (0.0-0.8) 01/07/18 05:55 Eos # (Auto) 0.2 K/uL (0.0-0.7) 01/07/18 05:55 Baso # (Auto) 0.1 K/uL (0.0-0.2) 01/07/18 05:55 PT 15.3 Seconds (9.8-13.1) H 01/03/18 22:00 INR 1.4 01/03/18 22:00 APTT 41.1 Seconds (25.6-37.1) H 01/03/18 22:00 Sodium 136 mmol/l (132-148) 01/08/18 05:45 Potassium 4.3 MMOL/L (3.6-5.0) 01/08/18 05:45 Chloride 112 mmol/L (98-107) H 01/08/18 05:45 Carbon Dioxide 21 mmol/L (22-30) L 01/08/18 05:45 Anion Gap 7 (10-20) L 01/08/18 05:45 BUN 16 mg/dl (9-20) 01/08/18 05:45 Creatinine 1.0 mg/dl (0.8-1.5) 01/08/18 05:45 Est GFR ( Amer) > 60 01/08/18 05:45 Est GFR (Non-Af Amer) > 60 01/08/18 05:45 Random Glucose 82 mg/dL (75-110) 01/08/18 05:45 Calcium 7.7 mg/dL (8.4-10.2) L 01/08/18 05:45 Phosphorus 3.2 mg/dl (2.5-4.5) 01/07/18 05:55 Magnesium 1.6 MG/DL (1.6-2.3) 01/07/18 05:55 Total Bilirubin 7.8 mg/dl (0.2-1.3) H 01/08/18 05:45 GGT 251 U/L (8-78) H 01/04/18 04:20 AST 103 U/L (17-59) H 01/08/18 05:45 ALT 26 U/L (21-72) 01/08/18 05:45 Alkaline Phosphatase 360 U/L (38-126) H 01/08/18 05:45 Ammonia 32 umo/L (16-60) 01/03/18 22:00 Total Protein 7.7 G/DL (6.3-8.2) 01/08/18 05:45 Albumin 2.1 g/dL (3.5-5.0) L 01/08/18 05:45 Globulin 5.6 gm/dL (2.2-3.9) H 01/08/18 05:45 Albumin/Globulin Ratio 0.4 (1.0-2.1) L 01/08/18 05:45 Triglycerides 112 mg/DL (0-149) 01/04/18 04:20 Cholesterol 104 mg/dL (0-199) 01/04/18 04:20 LDL Cholesterol Direct 53 mg/dL (0-129) 01/04/18 04:20 HDL Cholesterol 9 MG/DL (30-70) L 01/04/18 04:20 Amylase 191 U/L (30-110) H 01/05/18 04:35 Lipase 705 U/L (23-300) H 01/08/18 05:45 TSH 3rd Generation 0.57 mIU/ML (0.46-4.68) 01/04/18 04:20 Urine Color Elsa (YELLOW) 01/03/18 20:10 Urine Clarity Cloudy (Clear) 01/03/18 20:10 Urine pH 6.0 (5.0-8.0) 01/03/18 20:10 Ur Specific [place] 1.024 (1.003-1.030) 01/03/18 20:10 Urine Protein 30 mg/dL (NEGATIVE) 01/03/18 20:10 Urine Glucose (UA) Neg mg/dL (Normal) 01/03/18 20:10 Urine Ketones Negative mg/dL (NEGATIVE) 01/03/18 20:10 Urine Blood Moderate (NEGATIVE) 01/03/18 20:10 Urine Nitrate Negative (NEGATIVE) 01/03/18 20:10 Urine Bilirubin Moderate (NEGATIVE) 01/03/18 20:10 Urine Urobilinogen 4.0 mg/dL (0.2-1.0) 01/03/18 20:10 Ur Leukocyte Esterase Neg [place]/uL (Negative) 01/03/18 20:10 Urine RBC (Auto) 49 /hpf (0-3) H 01/03/18 20:10 Urine Microscopic WBC 2 /hpf (0-5) 01/03/18 20:10 Ur Squamous Epith Cells 2 /hpf (0-5) 01/03/18 20:10 Urine Bacteria Rare (<OCC) 01/03/18 20:10 Urine Opiates Screen Positive (NEGATIVE) H 01/03/18 20:10 Urine Methadone Screen Negative (NEGATIVE) 01/03/18 20:10 Ur Barbiturates Screen Negative (NEGATIVE) 01/03/18 20:10 Ur Phencyclidine Scrn Negative (NEGATIVE) 01/03/18 20:10 Ur Amphetamines Screen Negative (NEGATIVE) 01/03/18 20:10 U Benzodiazepines Scrn Positive (NEGATIVE) 01/03/18 20:10 U Oth Cocaine Metabols Negative (NEGATIVE) 01/03/18 20:10 U Cannabinoids Screen Negative (NEGATIVE) 01/03/18 20:10 Alcohol, Quantitative < 10 mg/dl (0-10) 01/03/18 19:00 Absolute Lymphs (Flow) 1368 Cells/mcL (850-3900) 01/04/18 19:15 % CD4 Cells 6 Percent (30-61) L 01/04/18 19:15 Absolute CD4 Count 89 Cells/mcL (490-1740) L 01/04/18 19:15 T-Help/Suppress Ratio 0.09 Ratio (0.86-5.00) L 01/04/18 19:15 % CD8 Cells 73 Percent (12-42) H 01/04/18 19:15 Absolute CD8 Count 1003 Cells/mcL (180-1170) 01/04/18 19:15 Hepatitis A IgM Ab Negative (NEGATIVE) 01/05/18 04:35 Hep Bs Antigen Negative (NEGATIVE) 01/05/18 04:35 Hep B Core IgM Ab Negative (NEGATIVE) 01/05/18 04:35 Hepatitis C Antibody Reactive (NEGATIVE) 01/05/18 04:35 HIV-1 RNA Qnt (RT-PCR) 5.44 (Not Detected) H 01/04/18 19:15 HIV 1&2 Antibody Screen Reactive (NEGATIVE) 01/04/18 19:15 Discharge Exam - Head Exam Head Exam: ATRAUMATIC, NORMAL INSPECTION Discharge Plan - Follow Up Plan Condition: STABLE Disposition: AGAINST MEDICAL ADVICE Instructions: Alcohol Use - When Is Drinking a Problem?, Depression, Adult (DC) Additional Instructions: follow up with your primary MD 1 week
== END 2018-01-08 13:15 | disposition left against medical advice (07) | DRG 713 ==
LOC: H.ER 17:16 → H.ERHOLD 21:30 → H.TEL 22:54 → H.MEDSURG1 01-06 00:24
PROVIDERS: ADMIT Internal Medicine; ATTEND Internal Medicine
DX: F10.239 Alcohol dependence with withdrawal, unspecified (principal); Z21 Asymptomatic human immunodeficiency virus [HIV] infection status; B19.20 Unspecified viral hepatitis C without hepatic coma; G40.909 Epilepsy, unspecified, not intractable, without status epilepticus; F20.9 Schizophrenia, unspecified; F32.9 Major depressive disorder, single episode, unspecified; I10 Essential (primary) hypertension; J45.909 Unspecified asthma, uncomplicated; M19.90 Unspecified osteoarthritis, unspecified site; R45.851 Suicidal ideations; F17.210 Nicotine dependence, cigarettes, uncomplicated; Z59.0 Homelessness; Z86.73 Personal history of transient ischemic attack (TIA), and cerebral infarction without residual deficits; Z88.3 Allergy status to other anti-infective agents